=== PATIENT | female | born 1965 | race African-American/Black ===

== ENCOUNTER 2021-04-16 15:08 | Outpatient (REF) | payer MEDICARE, SELFPAY ==
[2021-04-16 15:46] LABS: Anion Gap 15 (12-20); Blood Urea Nitrogen 9 mg/dL (9-16); Calcium 7.6 mg/dL (8.4-10.2); Carbon Dioxide 21 mmol/L (22-29); Chloride 104 mmol/L (96-108); Estimated Glomerular Filt Rate > 60; Glucose Random 67 mg/dL (60-115); Potassium 3.7 mmol/L (3.3-5.1); Sodium 136 mmol/L (135-145)
== END 2021-04-16 15:09 | disposition home or self-care (01) ==
LOC: HO.HVNA 15:08
PROVIDERS: Visit Provider Internal Medicine
DX: E87.6 Hypokalemia (principal)
CPT/HCPCS: 36415; 80048

== ENCOUNTER → 2024-02-29 13:44 | Outpatient (BNVA) | payer MEDICARE, OTHER, MEDICAID, SELFPAY | PROVIDERS: PCP Nurse Practitioner Family; Visit Provider Surgery ==

== ENCOUNTER 2024-04-25 12:20 | Outpatient (AMB) | payer MEDICARE, MEDICAID, SELFPAY ==
--- NOTE | 2024-04-25 12:22 | MHC.OFFVISWM ---
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 surgical weight loss program. Her goal is to lose weight and achieve a healthy lifestyle as well as to improve, if not resolve, obesity related medical conditions. Current weight is 267.8lbs with a BMI of 46.7.? She has tried multiple methods of weight loss including gastric bypass in 1999, weight watchers without permanent results. She lives with her . 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 She wakes at: 10am, and goes to bed at 2am.? Dinner is at 6pm. 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 PM snack: none Dinner: 6pm- hamburger/hot dog, pasta salad, baked beans, corn on the cob After dinner: will snack late at night- leftovers from dinner Other snacks: I'm not a sweet eater Liquids: cranberry juice Alcohol/marijuana/tobacco intake: no EtOH, no tobacco, no drugs Exercise: has two knee replacements and back pain- does stretching, has PT exercises- daily, has an exercise machine at home (similar to an elliptical) GERD score: 15 CONNOR score: 0 ESS score: 5 QOL score: 71 PFSH Surgical History Hx laparoscopic cholecystectomy Hx of discectomy Hx of gastric bypass History of bilateral knee replacement Social History Alcohol intake: never Patient Tobacco Use Status: Never used Tobacco Physical Exam Vital Signs: Last Vital Signs Temp 97.5 F 04/25/24 12:29 Pulse 77 04/25/24 12:29 BP 135/72 04/25/24 12:29 Pulse Ox 95 04/25/24 12:29 Oxygen Delivery Method Room Air 04/25/24 12:29 BMI result Body Mass Index 46.7 Const General: cooperative, comfortable and no acute distress Resp Effort & Inspection: normal respiratory effort Auscultation: clear to auscultation bilaterally Cardio Rate: regular rate Rhythm: regular rhythm GI Other: soft, nontender, nondistended, previous incisions well healed (open gastric bypass, lap yony), no hernias or masses, +BS Extrem General: Yes no calf tenderness and No edema Assessment & Plan Assessment & Plan (1) Gastric bypass status for obesity: Comment: 2000- Dr. Robison, open procedure Code(s): Z98.84 - Bariatric surgery status Category: Surgical (2) GERD (gastroesophageal reflux disease): Code(s): K21.9 - Gastro-esophageal reflux disease without esophagitis Category: Medical (3) Arthritis: Code(s): M19.90 - Unspecified osteoarthritis, unspecified site Category: Medical (4) Tachycardia: Code(s): R00.0 - Tachycardia, unspecified Category: Medical Plan This is a 58 yo female who will start our SWL program to prepare for revision bariatric surgery.? Blood work, CXR, ECG, Abd US have been ordered. In addition, CT scan to define anatomy is ordered and will schedule pt for endoscopy at which time H. pylori testing can be done. She is being scheduled for RD and BH initial consultations. She will start SWL classes and watch at least #1 and #2 before her next appointment. Will obtain previous op note and path report from gastric bypass surgery. Adequate sleep of 7-8 hours per night discussed. ?? Pt will purchase body composition analyzer scale (Nirmala Willard or [employer] recommended) and check weight weekly. The best time to do this is first thing in the morning after going to the bathroom. 1. Nutritional counseling. 11am-1pm: Premier Protein powder- 2 scoops in 8oz vanilla unsweetened almond milk 2pm-4pm: [employer]unch protein bar Dinner at 6pm: 6 forks of protein and 6 forks of salad/vegetables 7pm-9pm: [employer] protein bar 10pm-12am: Premier Protein powder- 1 scoop in 8oz vanilla unsweetened almond milk Meal to include lean meat (beef, fish, pork, turkey, chicken), cooked vegetables or a salad with olive oil and/or fruits (berries, pears, apples, kiwi). Avoid salt, breads, potatoes, rice, pasta, desserts.? Try to drink 64 oz of water daily and avoid soda and juices. ?2. Each shake would be drunk slowly, like coffee in a period of 2 hours. ?3. Cut each bar in 4 pieces and eat each piece in 30 min? to make each bar last 2 hours. ?4. I emphasized the importance of measuring accurately the food portion and measure it carefully when serving the food on the plate ?5. The meal portions include 6 full-size forks of meat and 6 full-size forks of salad or vegetables. You always eat the meat portion but you can replace up to half of the forks of salad/vegetables with rice, potatoes or pasta, or a fruit? if you like. The less you do it the better weight loss will be. ?6. One full-size fork is what can be scooped on the fork without falling aside and not what can be bit with the fork. Use regular forks like those you find in a typical restaurant. ?7.? Please send me weight measurements as soon as possible and then once a week. Always include your diet and exercise plan. Alternatively come weekly at the office for weight checks and send me the measurements. ?8. Start elliptical with an incline of 2.0 and resistance of 4.0. Increase resistance by 1 every 3 min to a max resistance of 10.0, and repeat cycles for 300 calories. Alternatively, start treadmill with a speed of 2.0 and incline of 0, increasing incline by 1 every 3 minutes to the highest comfortable level then decrease in the same fashion.? Repeat process to a goal of 300 calories.? Goal of 2000 calories burned or more weekly.? Tracking calories is essential. 9. Alternatively start walking outside daily, tracking calories with a goal of 300 calories per day, daily. You can download the mirian DramaFever which can track you time, distance and calories while walking outside.? You press start in the mirian when you start and then stop when you are finished.?? 10.? It is important to avoid and for at least 18 months postoperatively and it has been discussed at the information session 11. Goal is to lose at least 1.5-2lbs per week 12. Goal to lose 10% of your weight before surgery, which is about 26 lbs. Ultimate weight goal: 241 lbs before surgery Patient is morbidly obese and is not considered stable at this time. I spent a total of 60 minutes reviewing/updating records, examining the patient and counseling the patient on weight management as detailed above. Orders: Orders Complete Blood Count Auto Diff Today Z.818 - Encounter for other preprocedural examination, Z.84 - Bariatric surgery status Lipid Panel Today Z.8 - Encounter for other preprocedural examination, Z.84 - Bariatric surgery status IRON PROFILE Today Z.8 - Encounter for other preprocedural examination, Z.84 - Bariatric surgery status Comprehensive Met. Panel Today Z.818 - Encounter for other preprocedural examination, Z.84 - Bariatric surgery status Zinc Today Z01.818 - Encounter for other preprocedural examination, Z.84 - Bariatric surgery status Ferritin Today Z01.818 - Encounter for other preprocedural examination, Z.84 - Bariatric surgery status Vitamin D 25-OH Total Today Z.818 - Encounter for other preprocedural examination, Z.84 - Bariatric surgery status XR chest 2V Today Z.818 - Encounter for other preprocedural examination, Z.84 - Bariatric surgery status FL upper GI w air Today Z01.818 - Encounter for other preprocedural examination, Z.84 - Bariatric surgery status Insulin Today Z.818 - Encounter for other preprocedural examination, Z.84 - Bariatric surgery status Hemoglobin A1c Today Z01.818 - Encounter for other preprocedural examination, Z98.84 - Bariatric surgery status H Pylori Breath Test Today Z - Encounter for other preprocedural examination, Z.84 - Bariatric surgery status Vitamin B12 and Folate Today Z - Encounter for other preprocedural examination, Z.84 - Bariatric surgery status C Reactive Protein Today Z - Encounter for other preprocedural examination, Z.84 - Bariatric surgery status Vitamin B1 Today Z - Encounter for other preprocedural examination, Z.84 - Bariatric surgery status Vitamin A Today Z - Encounter for other preprocedural examination, Z.84 - Bariatric surgery status TSH reflex Free T4 Today Z - Encounter for other preprocedural examination, Z - Bariatric surgery status US abdomen comp w elastography Today Z - Encounter for other preprocedural examination, Z.84 - Bariatric surgery status ECG 12 lead EKG Today Z - Encounter for other preprocedural examination, Z - Bariatric surgery status Referrals Behavioral Health Referral Z - Encounter for other preprocedural examination, Z. - Bariatric surgery status Nutrition/Dietitian Referral Z - Encounter for other preprocedural examination, - Bariatric surgery status
[2024-04-25 12:29] VITALS: BP 135/72; PULSE 77; TEMP 36.4; O2SAT 95; BMI 46.7
== END 2024-04-25 13:28 | disposition home or self-care (01) ==
PROVIDERS: PCP Nurse Practitioner Family; Visit Provider Physician Assistant Surgical
DX: E66.01 Morbid (severe) obesity due to excess calories (principal); Z68.42 Body mass index [BMI] 45.0-49.9, adult; Z98.84 Bariatric surgery status; K21.9 Gastro-esophageal reflux disease without esophagitis; M19.90 Unspecified osteoarthritis, unspecified site; R00.0 Tachycardia, unspecified
CPT/HCPCS: 99205

== ENCOUNTER → 2024-04-25 12:20 | Outpatient (BNVA) | payer OTHER, SELFPAY | PROVIDERS: PCP Nurse Practitioner Family; Visit Provider Physician Assistant Surgical | DX: Z01.818 Encounter for other preprocedural examination (principal); E66.01 Morbid (severe) obesity due to excess calories; K21.9 Gastro-esophageal reflux disease without esophagitis; Z71.3 Dietary counseling and surveillance; Z68.42 Body mass index [BMI] 45.0-49.9, adult; Z98.84 Bariatric surgery status | CPT/HCPCS: 99202 ==

== ENCOUNTER 2024-05-28 11:55 | Outpatient (REF) | payer MEDICARE, SELFPAY ==
--- NOTE | ~2024-05-28 | XR_ITS ---
EXAMINATION: XR CHEST CLINICAL INFORMATION: Z98.84 - Bariatric surgery status COMPARISON: None TECHNIQUE: 2 views of the chest FINDINGS: Lines and tubes: None. Hazy perihilar airspace opacities which may reflect edema or multifocal infection, recommend follow-up radiographs to ensure resolution and if findings do not resolve further evaluation with CT chest. Trace right pleural effusion. No pneumothorax. Normal cardiomediastinal silhouette. XR/XR chest 2V IMPRESSION: 1. Hazy perihilar airspace opacities which may reflect edema or multifocal infection, recommend follow-up radiographs to ensure resolution and if findings do not resolve further evaluation with CT chest. 2. Trace right pleural effusion. The report will be called to the ordering clinician by a [facility] Display Builder. Electronically signed by: Ansley Zaman MD 06/21/2024 11:55 AM EDT
--- NOTE | 2024-05-28 12:04 | ECG_ITS ---
Test Reason : BARIATRIC STATUS Blood Pressure : / mmHG Vent. Rate : 075 BPM Atrial Rate : 075 BPM P-R Int : 170 ms QRS Dur : 078 ms QT Int : 384 ms P-R-T Axes : 031 012 016 degrees QTc Int : 428 ms Poor data quality, interpretation may be adversely affected Normal sinus rhythm Normal ECG No previous ECGs available Referred By: Yanira Liriano Electronically Signed By:MICHELLE BORDEN
[2024-05-28 12:17] LABS: MANUAL DIFF FLAG NO
[2024-05-28 12:32] LABS: Basophils Percent Auto 0.2 % (0-2); Eosinophils Absolute Auto 0.4 X10*3/uL (0.0-0.4); Eosinophils Percent Auto 2.2 % (0-4); Hematocrit 41.9 % (37.0-47.0); Imm Gran Abs Auto 0.08 X10*3/uL (0.00-0.03); Imm Gran Pct Auto 0.5 % (0.0-0.4); Lymphocytes Absolute Auto 3.4 X10*3/uL (1.2-4.9); Mean Corpuscular Hemoglobin 22.6 pg (27.0-33.0); Mean Platelet Volume 9.3 fL (9.4-12.3); Monocytes Absolute Auto 1.4 X10*3/uL (0.1-1.2); Monocytes Percent Auto 8.9 % (2-11); Neutrophils Absolute Auto 10.9 x10*3/uL (2.0-8.3); Neutrophils Percent Auto 67.2 % (45-73); Platelet Count 382 X10*3/uL (160-400); Red Blood Count 5.74 X10*6/uL (4.20-5.50); Red Cell Distribution Width 15.7 % (11.0-16.0); White Blood Count 16.3 X10*3/uL (4.8-10.8)
[2024-05-28 12:40] LABS: Estimated Average Glucose 114 mg/dL; Hemoglobin A1c % 5.6 % (<6.0)
[2024-05-28 13:21] LABS: Alanine Aminotransferase 21 U/L (0-31); Albumin Level 3.9 g/dL (3.5-5.0); Alkaline Phosphatase 136 U/L (39-117); Anion Gap 16 (12-20); Aspartate Amino Transferase 21 U/L (5-31); Bilirubin Total 0.4 mg/dL (0.0-1.0); Blood Urea Nitrogen 13 mg/dL (9-16); C Reactive Protein 2.24 mg/dL (< or = 0.50); Calcium 9.5 mg/dL (8.4-10.2); Carbon Dioxide 24 mmol/L (22-29); Chloride 104 mmol/L (96-108); Cholesterol 155 mg/dL (<200); Estimated Glomerular Filt Rate > 60; Glucose Random 86 mg/dL (60-115); HDL Cholesterol 51 mg/dL (>40); Iron 72 mcg/dL (30-160); LDL Cholesterol Calculated 88 mg/dL (<100); Percent Iron Saturation 21 % (15-50); Sodium 139 mmol/L (135-145); Total Iron Binding Capacity 339 mcg/dL (228-428); Total Protein 7.6 g/dL (6.5-8.0); Triglycerides 80 mg/dL (<150); Unsaturated Iron Binding 267 ug/dL
[2024-05-28 13:33] LABS: Ferritin 351 ng/mL (10-250); Insulin 10 uU/mL (2-29); TSH reflex Free T4 0.95 uIU/mL (0.32-4.0); Vitamin D 25-OH Total 11.1 ng/mL (>30)
[2024-05-28 13:37] LABS: Folate 9.3 ng/mL (> or = 4.0); Vitamin B12 540 pg/mL (200-900)
[2024-05-31 01:23] LABS: Zinc 84 mcg/dL (60-130)
[2024-06-01 18:53] LABS: Vitamin A 78 mcg/dL (38-98)
[2024-06-04 06:18] LABS: Vitamin B1 <6 nmol/L (8-30)
== END 2024-05-28 11:56 | disposition home or self-care (01) ==
LOC: HO.LAB 11:55
PROVIDERS: Visit Provider Physician Assistant Surgical
DX: Z01.818 Encounter for other preprocedural examination (principal); Z98.84 Bariatric surgery status
CPT/HCPCS: 36415; 71046; 80053; 80061; 82306; 82607; 82728; 82746; 83036; 83525; 83540; 84425; 84443; 84590; 84630; 85025; 86140; 93005

== ENCOUNTER → 2024-05-30 13:05 | Outpatient (BNVA) | payer MEDICARE, SELFPAY | PROVIDERS: Visit Provider Counselor Mental Health ==

== ENCOUNTER → 2024-05-30 13:05 | Outpatient (AMB) | payer MEDICARE, SELFPAY ==
--- NOTE | 2024-05-30 13:13 | MHC.WMTHER ---
Intake Intake Visit Reasons: (TV) BH Intake Allergies No Known Allergies Allergy (Verified 04/25/24 12:27) PFSH Surgical History Hx laparoscopic cholecystectomy Hx of discectomy Hx of gastric bypass History of bilateral knee replacement Social History Alcohol intake: never Patient Tobacco Use Status: Never used Tobacco Behavioral Health Assessment Weight Management Therapy Therapy Notes Details Pt is a 58 years old female, who presents for initial behavioral health assessment as part of surgical weight-loss program. Presenting Concerns Referral Source [facility]MP Provider. Pt saw Allie Napoles on 04/25 for first time. Reason for referral Completion of behavioral health assessment as part of process for weight-loss surgery. Precipitating Event Weight gain after gastric bypass. Food/Weight/Diet Expectations of change Initial goal to lose 10% of her weight before surgery, which is about 26 lbs. Ultimate weight goal: 241 Lbs before surgery. PT feels good with this goal. History/Relationship with food PT reports she doesn't eat large amounts of food because she can, rather she eats the wrong foods. She has some dislikes for food which causes limited options for healthy meals. PT denies she doesn't praise herself with food, but do take out 3-4 times at week (Armenian food, Popeyes, pizza). She was following a meal plan after first bariatric surgery, and she has gotten away from that. She is now able to eat and drink at the same time. Example of meals before starting the program: Breakfast: @2pm ham and cheese sandwich Lunch: @5pm a sandwich, or a salad. IF she cooks meat/potatoes/veggies. Dinner: @7pm Leftovers, as she doesn't finish her meal. Then will eat again the same at @10. She snacks on cheerios, cheese, bananas at night (10- to 12) Her meal schedule is impacted by sleeping issues. She wakes up around 11am, and is not hungry until 1 or 2pm. History/Relationship with weight When had bypass in 1999 her weight was 427Lbs, a year after she was 377Lbs. Lowest weight post GBP was 181Lbs in 2020 while being sick but her average weight post-op was 220Lbs. Her goal is to be under 200Lbs. Binge Eating Do you frequently eat large amounts of food in short periods of time, not feeling physically hungry? No Do you feel out of control when you eat a large amount of food in a short period of time? No Do you eat large amounts of food rapidly and typically alone? No Night Eating Do you wake up at least once during the night to eat? No If you wake up in the night, do you find that it is necessary to eat something in order to fall back asleep? No Do you have little or no appetite in the morning and feel very hungry in the evening, often overeating between dinner and when you go to bed? No Social History Family history and relationship since 2019 with her second marriage First in 2014 Client has 4 adult children, and 10 grandchildren and 2 great-grandchildren. Parents are both . Only sister in 2020. PT states they're a close family. 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 Developmental history and status None reported. Social support and children. 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 Cultural/Ethnic information PT is from [place]. Living in [place] since 1981. Black-[place]uvian. Legal Involvement and History Current or historical involvement with the legal system? None. Education Highest grade completed 1 year of College. Preferred learning style Learn by doing Currently enrolled in educational program? No Interested in further educational program? No Educational Interests/Skills [employer] license, she works part-time, every other weekend. 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 ) Wants help to find employment? 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 Family activities/gatherings. 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 Financial Situation Describe current financial situation Comfortable Financial assistance? SSDI Service Service? No Mental Health and Addiction Treatment Current/Past substance abuse? No Current/Past addictive behavior concerns? No Psychiatric history Never been in counseling. Takes trazodone for sleep issues, prescribed by her PCP. Denies ever been in crisis or hospitalized for mental health. No Hx of current concerns with SI/Sa, self/other-harm. Medical and Physical Health Summary Additional Medical History not covered in history PT had 2 knee replacement and back problems due to arthritis. Sexual History concerns None reported. Physical exam in the last year? Yes Pain Screening Current pain? Yes Pain in the last few months? Yes Comments Pt reports she has pain daily. The pain is related to arthritis, mainly affecting her back right now and also sciatic nerve. Medications Is the patient compliant with medications? Yes Does the patient have Roy Guardian in place? Not applicable Does the patient use complimentary health approaches? Yes (stretches. ) Trauma/Abuse History History of trauma? No Questionnaires PHQ-9 Over the last 2 weeks, how often have you been bothered by any of the following problems? 1. Little interest or pleasure in doing things: not at all 2. Feeling down, depressed, or hopeless: not at all 3. Trouble falling or staying asleep, or sleeping too much: several days 4. Feeling tired or having little energy: several days 5. Poor appetite or overeating: several days 6. Feeling bad about yourself - or that you are a failure or have let yourself or your family down: not at all 7. Trouble concentrating on things, such as reading the newspaper or watching television: not at all 8. Moving or speaking so slowly that other people could have noticed. Or the opposite - being so fidgety or restless that you have been moving around a lot more than usual: not at all 9. Thoughts that you would be better off or of hurting yourself in some way: not at all Total score: 3 Depression Screening Interpretation: Negative (Scores from 03/13/24. Will administer a new one next visit. ) Depression Screening Done: Yes Source: Developed by Drs. Juan Parikh, Mary Kate Zuniga, Ethan Moeller and colleagues, with an educational artur from [employer]. Binge Eating Scale Group 1 A. I don't feel self-conscious about my wt. or body size when I'm with others. B. I feel concerned about how I look to others, but it normally does not make me fell disappointed with myself C. I do get self-conscious about my appearance and wt. which makes me feel disappointed in myself. D. I feel very self-conscious about my wt. and frequently I feel intense shame and disgust for myself. I try to avoid social contacts because of my self-consciousness. Response Group 1: B Group 2 A. I don't have any difficulty eating slowly in the proper manner. B. Although I seem to gobble down foods, I don't end up feeling stuffed because of eating to much. C. At times, I tend to eat quickly and then, I feel uncomfortably full afterwards. D. I have the habit of bolting down my food, without really chewing it. When this happens I usually feel uncomfortably stuffed because I've eaten to much. Response Group 2: A Group 3 A. I feel capable to control my eating urges when I want to. B. I feel like I have failed to control my eating more than the average person. C. I feel utterly helpless when it comes to feeling in control of my eating urges. D. Because I feel so helpless about controlling my eating I have become very desperate about trying to get control. Response Group 3: B Group 4 A. I don't have the habit of eating when I'm bored. B. I sometimes eat when I'm bored, but often I'm able to get busy and get my mind off food. C. I have a regular habit of eating when I'm bored, but occasionally, I can use some other activity to get my mind off eating. D. I have a strong habit of eating when I'm bored. Nothing seems to help me breath the habit. Response Group 4: B Group 5 A. I'm usually physically hungry when I eat something. B. Occasionally, I eat something on impulse even though I really am not hungry. C. I have the regular habit of eating foods, that I might not really enjoy, to satisfy a hungry feeling even though physically, I don't need the food. D. Although I'm not physically hungry, I get a hungry feeling in my mouth that only seems to be satisfied when I eat a food, like sandwich, that fills my mouth. Sometimes, when I eat the food to satisfy my mouth hunger, I then spit the food out so I won't gain weight. Response Group 5: B Group 6 A. I don't feel any guilt or self-hate after I overeat. B. After I overeat, occasionally I feel guilt or self-hate. C. Almost all the time I experience strong guilt or self-hate after I overeat. Response Group 6: B Group 7 A. I don't lose total control of my eating when dieting even after periods when I overeat. B. Sometimes when I eat a forbidden food on a diet, I feel like I blew it and eat even more. C. Frequently, I have the habit of saying to myself, I've blown it now, why not go all the way, when I overeat on a diet. When that happens I eat more. D. I have a regular habit of starting a strict diets for myself but I break the diets by going on an eating binge. My life seems to be either a feast or famine. Response Group 7: A Group 8 A. I rarely eat so much food that I feel uncomfortably stuffed afterwards. B. Usually about once a month, I each such a quantity of food, I end up feeling very stuffed. C. I have regular periods during the month when I eat large amounts of food, either at mealtime or at snacks. D. I eat so much food that I regularly feel quite uncomfortable after eating and sometimes a bit nauseous. Response Group 8: B Group 9 A. My level of calorie intake does not go up very high or go down very low on a regular basis. B. Sometimes after I overeat, I will try to reduce my caloric intake to almost nothing to compensate for the excess calories I've eaten. C. I have a regular habit of overeating during the night. It seems that my routine is not to be hungry in the morning but overeat in the evening. D. In my adult years, I have had week-long periods where I practically starve myself. This follows periods when I overeat. It seems I live a life of either feast or famine. Response Group 9: A Group 10 A. I usually am able to stop eating when I want to. I know when enough is enough. B. Every so often, I experience a compulsion to eat which I can't seem to control. C. Frequently, I experience strong urges to eat which I seem unable to control, but at other times I can control my eating urges. D. I feel incapable of controlling urges to eat. I have a fear of not being able to stop eating voluntarily. Response Group 10: A Group 11 A. I don't have any problem stopping eating when I feel full. B. I usually can stop eating when I feel full but occasionally overeat leaving me feeling uncomfortably stuffed. C. I have a problem stopping eating once I start and usually I feel uncomfortably stuffed after I eat a meal. D. Because I have a problem not being able to stop eating when I want, I sometimes have to induce vomiting to relieve my stuffed feeling. Response Group 11: B Group 12 A. I seem to eat just as much when I'm with others, Family social gatherings as when I'm by myself. B. Sometimes, when I'm with other persons, I don't eat as much as I want to eat because I'm self-conscious about my eating. C. Frequently, I eat only a small amount of food when others are present, because I'm very embarrassed about my eating. D. I feel so ashamed about overeating that I pick times to overeat when I know no one will see me. I feel like a closet eater. Response Group 12: A Group 13 A. I eat three meals a day with only an occasional between meal snack. B. I eat 3 meals a day, but I also normally snack between meals. C. When I am snacking heavily, I get in the habit of skipping regular meals. D. There are regular periods when I seem to be continually eating, with no planned meals. Response Group 13: C Group 14 A. I don't think much about trying to control unwanted eating urges. B. At least some of the time, I feel my thoughts are pre-occupied with trying to control my eating urges. C. I feel that frequently I spend much time thinking about how much I ate or about trying not to eat anymore. D. It seems to me that most of my waking hours are pre-occupied by thoughts about eating or not eating. I feel like I'm constantly struggling not to eat. Response Group 14: B Group 15 A. I don't think about food a great deal. B. I have strong craving for food but they last only for brief periods of time. C. I have days when I can't seem to think about anything else but food. D. Most of my days seem to be pre-occupied with thoughts about food. I feel like I live to eat. Response Group 15: B Group 16 A. I usually know whether or not I'm physically hungry. I take the right portion of food to satisfy me. B. Occasionally, I feel uncertain about knowing whether or not I'm physically hungry. A these times it's hard to know how much food I should take to satisfy me. C. Even though I might know how many calories I should eat, I don't have any idea what is a normal amount of food for me. Response Group 16: B Binge Eating Score: 12 Score less than 17 Minimal Risk Score between 18-26 Moderate Risk Score between 27-46 High Risk Assessment & Plan Assessment & Plan (1) Adjustment disorder: Code(s): F43.20 - Adjustment disorder, unspecified Qualifiers: Adjustment disorder type: unspecified type Qualified Code(s): F43.20 - Adjustment disorder, unspecified Plan PT not cleared today as assessment was not finished. PHQ-9 will be administered again and BES scores reviewed with client at next visit. PT will be seen again on 06/22/2024 at 1pm via telehealth. Telehealth Telehealth [facility] Location of provider rendering services: other Location of patient: address on file Patient Identification confirmed using: Name, : Yes Telehealth method: video Patient verbally consented to treatment: Yes Patient verbally consented to billing insurance company: Yes Patient informed of any privacy concerns related to visit: No Minutes spent on Phone/Video with Pt.: 60 Coding Level of Care Code New Pt Tele Psy Diag Eval (12812) Patient Type New Diagnoses Adjustment disorder, unspecified type F43.20 Adjustment disorder type: unspecified type Time Spent (min) 60
== END ==
LOC: HO.HBST 13:05
PROVIDERS: Visit Provider Counselor Mental Health
DX: F43.20 Adjustment disorder, unspecified (principal)
CPT/HCPCS: 90791

== ENCOUNTER 2024-06-19 12:01 | Outpatient (AMB) | payer MEDICARE, SELFPAY ==
--- NOTE | 2024-06-19 12:10 | MHC.OFFVISWM ---
VS Expanded 06/19/24 12:18 Height 5 ft 3.5 in Weight 254 lb BMI 44.3 Intake Visit Reasons: TV F/U SWL Allergies No Known Allergies Allergy (Verified 04/25/24 12:27) Medication List - Last Reconciled 06/19/24 by ULISES Hahn bumetanide 0.5 mg PO DAILY cholecalciferol (vitamin D3) 125 mcg PO DAILY metoprolol succinate ER 25 mg PO DAILY oxycodone mg PO pantoprazole 40 mg PO BID potassium chloride ER 20 mEq PO DAILY spironolactone mg PO sucralfate 1 g PO TID thiamine HCl (vitamin B1) 100 mg PO DAILY trazodone mg PO HPI Comments Details: The patient is a pleasant 59 year old female with history of gastric bypass who returns to the clinic for pre-operative surgical weight loss management.? They were last seen in the office on 04/25/2024, recorded weight at that time was 267.8 pounds, with a BMI of 46.7.? Today's weight is 254 pounds and BMI is 44.3.? There has been a weight loss of 13.8 pounds since initiating the surgical weight loss program on 04/25/2024 with a total body weight loss of 5.15 %. Pt reports starting the plan in mid May after going on vacation. Pre op work up completed as follows: SWL classes:? 05/17 appts: 05/30/24, still needs clearance ?? Labs: WBC 16.3, alk phos 136, CRP 2.24, vit B 6, vit D 11.1 H. pylori: to be done at endoscopy 06/26 CXR: 05/28/24, read pending EK05/28/24, NSR ABD U/S: scheduled 07/04 UGI: not needed, having endoscopy Current meal plan includes: 11am-1pm: [employer] Protein powder- 2 scoops in 8oz vanilla unsweetened almond milk 2pm-4pm: [employer] protein bar Dinner at 6pm: 6 forks of protein and 6 forks of salad/vegetables 7pm-9pm: [employer] protein bar 10pm-12am: [employer] Protein powder- 1 scoop in 8oz vanilla unsweetened almond milk Current exercise plan includes: Rosenda Jane 1 mile walk videos- 3-4 days/week PFSH Surgical History Hx laparoscopic cholecystectomy Hx of discectomy Hx of gastric bypass History of bilateral knee replacement Social History Alcohol intake: never Patient Tobacco Use Status: Never used Tobacco Telehealth Telehealth Telehealth Platform: Telephone Location of provider rendering services: other Location of patient: address on file Patient Identification confirmed using: Name, : Yes Telehealth method: voice only Patient verbally consented to treatment: Yes Patient verbally consented to billing insurance company: Yes Patient informed of any privacy concerns related to visit: Yes Minutes spent on Phone/Video with Pt.: 15 Assessment & Plan Assessment & Plan (1) Gastric bypass status for obesity: Comment: 1999- Dr. Robison, open procedure Code(s): Z98.84 - Bariatric surgery status Category: Medical (2) Morbid obesity: Code(s): E66.01 - Morbid (severe) obesity due to excess calories Category: Medical Plan Continue same meal plan. Endoscopy next week, 07/04. Will attempt to obtain op note and path report from bypass in 1999. Pt also needs CT scan, will order. RTC 1 month for in person visit, physical exam. I spent a total of 30 minutes reviewing/updating records, examining the patient and counseling the patient on weight management as detailed above. Orders: Orders CT abdomen pelvis w IV con Today Z98.84 - Bariatric surgery status
[2024-06-19 12:18] VITALS: BMI 44.3
== END 2024-06-19 12:37 | disposition home or self-care (01) ==
LOC: HO.HBS 12:01
PROVIDERS: PCP Internal Medicine; Visit Provider Physician Assistant Surgical
DX: E66.01 Morbid (severe) obesity due to excess calories (principal); Z68.41 Body mass index [BMI] 40.0-44.9, adult; Z98.84 Bariatric surgery status
CPT/HCPCS: 98967

== ENCOUNTER → 2024-06-19 12:01 | Outpatient (BNVA) | payer MEDICARE, SELFPAY | PROVIDERS: PCP Internal Medicine; Visit Provider Physician Assistant Surgical ==

== ENCOUNTER → 2024-06-22 13:17 | Outpatient (AMB) | payer MEDICARE, SELFPAY ==
--- NOTE | 2024-06-22 13:16 | A.OFFWM_ITS ---
Intake Intake Visit Reasons: VIDEO F/U Allergies No Known Allergies Allergy (Verified 04/25/24 12:27) PFSH Surgical History Hx laparoscopic cholecystectomy Hx of discectomy Hx of gastric bypass History of bilateral knee replacement Social History Alcohol intake: never Patient Tobacco Use Status: Never used Tobacco Behavioral Health Assessment Weight Management Therapy Therapy Notes Details PT is a 58 years old female, who presents for a follow up to complete behavioral health assessment as part of surgical weight-loss program. PT had a gastric bypass in and had gained weight, and at this time she is interested in a revision surgery as she's looking for alternatives to loss and maintain weight-loss. PT states she has no history of mental health and/or been in services before; no history of crisis or inpatient services reported and no history or current concern with senf-harm/other-harm reported. 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 On the other hand, there is also no evidence for stress/emotional-eating, and scores from BES suggest low risk for binge eating behavior. PHQ- scores also showed no active symptoms/concerns with depression. Mental status exam is within normal limits, suggesting person's functioning is not impaired. At this time patient is cleared from the behavioral health standpoint. Presenting Concerns Referral Source WMP Provider. Pt saw Allie Napoles on 04/25 for first time. Reason for referral Completion of behavioral health assessment as part of pr ocess for weight-loss surgery. Precipitating Event Weight gain after gastric bypass. Living Situation Current Living Situation Own At risk of losing current housing? No Satisfied with current living situation? Yes Comments PT lives with her . Food/Weight/Diet Expectations of change Initial goal to lose 10% of her weight before surgery, which is about 26 lbs. Ultimate weight goal: 241 Lbs before surgery. PT feels good with this goal. Her main goal is to maintain her weight-loss. Recent weight: 254 - 12Lbs away form initial goal. Current meal plan includes: 11am-1pm: Premier Protein powder- 2 scoo ps in 8oz vanilla unsweetened almond milk 2pm-4pm: Fitcrunch protein bar Dinner at 6pm: 6 forks of protein and 6 forks of salad/vegetables 7pm-9pm: [employer]unch protein bar 10pm-12am: Premier Protein powder- 1 sco op in 8oz vanilla unsweetened almond milk Current exercise plan includes: Rosenda Lara 1 mile walk videos- 3-4 days/week History/Relationship with food PT reports she doesn't eat large amounts of food because she can, rather she eats the wrong foods. She has some dislikes for food which causes limited options for healthy meals. PT denies she doesn't praise herself with food, but do take out 3-4 times at week (Serbian food, Popeyes, pizza). She was following a meal plan after first bariatric surgery, and she has gotten away from that. She is now able to eat and drink at the same time. Example of meals before starting the program: Breakfast: @2pm ham and cheese sandwich Lunch: @5pm a sandwich, or a salad. IF she cooks meat/potatoes/veggies. Dinner: @7pm Leftovers, as she doesn't finish her meal. Then will eat again the same at @10. She snacks on cheerios, cheese, bananas at night (10- to 12) Her meal schedule is impacted by sleeping issues. She wakes up around 11am, and is not hungry until 1 or 2pm. History/Relationship with weight When had bypass in 1999 her weight was 427Lbs, a year after she was 377Lbs. Lowest weight post GBP was 181Lbs in 2020 while being sick but her average weight post-op was 220Lbs. Her goal is to be under 200Lbs. History/Relationship with dieting Bypass in 1999. Cut on things, like less carbs. Binge Eating Do you frequently eat large amounts of food in short periods of time, not feeling physically hungry? No Do you feel out of control when you eat a large amount of food in a short period of time? No Do you eat large amounts of food rapidly and typically alone? No Night Eating Do you wake up at least once during the night to eat? No If you wake up in the night, do you find that it is necessary to eat something in order to fall back asleep? No Do you have little or no appetite in the morning and feel very hungry in the evening, often overeating between dinner and when you go to bed? No Social History Family history and relationship since 2019 with her second marriage First in 2014 Client has 4 adult children, and 10 grandchildren and 2 great-grandchildren. Parents are both . Only sister in 2020. PT states they're a close family. 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 Developmental history and status None reported. Social support and children. 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 Cultural/Ethnic information PT is from [place]. Living in [place] since 1981. Black-Beninese. Legal Involvement and History Current or historical involvement with the legal system? None. Education Highest grade completed 1 year of College. Preferred learning style Learn by doing Currently enrolled in educational program? No Interested in further educational program? 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 Employment Employment Status [employer] ([employer] ) Wants help to find employment? No Meaningful activities Synagogue activities, bible study. Family activities/ gatherings. 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 Financial Situation Describe current financial situation Comfortable Financial assistance? SSDI Service Service? No Mental Health and Addiction Treatment Current/Past substance abuse? No Current/Past addictive behavior concerns? No Psychiatric history Never been in counseling. Takes trazodone for sleep issues, prescribed by her PCP. Denies ever been in crisis or hospitalized for mental health. No Hx of current concerns with SI/Sa, self/other-harm. Medical and Physical Health Summary Additional Medical History not covered in history PT had 2 knee replacement and back problems due to arthritis. Sexual History concerns None reported. Physical exam in the last year? Yes Pain Screening Current pain? Yes Pain in the last few months? Yes Comments Pt reports she has pain daily. The pain is related to arthritis, mainly affecting her back right now and also sciatic nerve. Medications Is the patient compliant with medications? Yes Does the patient have Roy Guardian in place? Not applicable Does the patient use complimentary health approaches? Yes (stretches. ) Trauma/Abuse History History of trauma? No Questionnaires PHQ-9 Over the last 2 weeks, how often have you been bothered by any of the following problems? 1. Little interest or pleasure in doing things: not at all 2. Feeling down, depressed, or hopeless: not at all 3. Trouble falling or staying asleep, or sleeping too much: nearly every day (insomnia.) 4. Feeling tired or having little energy: several days 5. Poor appetite or overeating: not at all 6. Feeling bad about yourself - or that you are a failure or have let yourself or your family down: not at all 7. Trouble concentrating on things, such as reading the newspaper or watching television: not at all 8. Moving or speaking so slowly that other people could have noticed. Or the opposite - being so fidgety or restless that you have been moving around a lot more than usual: not at all 9. Thoughts that you would be better off or of hurting yourself in some way: not at all Total score: 4 Depression Screening Interpretation: Negative Depression Screening Done: Yes 16146 - PHQ-9 Billing: Yes Source: Developed by Drs. Juan Parikh, Mary Kate Zuniga, Ethan Moeller and colleagues, with an educational artur from [employer]. Binge Eating Scale Group 1 A. I don't feel self-conscious about my wt. or body size when I'm with others. B. I feel concerned about how I look to others, but it normally does not make me fell disappointed with myself C. I do get self-conscious about my appearance and wt. which makes me feel disappointed in myself. D. I feel very self-conscious about my wt. and frequently I feel intense shame and disgust for myself. I try to avoid social contacts because of my self- consciousness. Response Group 1: B Group 2 A. I don't have any difficulty eating slowly in the proper manner. B. Although I seem to gobble down foods, I don't end up feeling stuffed because of eating to much. C. At times, I tend to eat quickly and then, I feel uncomfortably full afterwards. D. I have the habit of bolting down my food, without really chewing it. When this happens I usually feel uncomfortably stuffed because I've eaten to much. Response Group 2: A Group 3 A. I feel capable to control my eating urges when I want to. B. I feel like I have failed to control my eating more than the average person. C. I feel utterly helpless when it comes to feeling in control of my eating urges. D. Because I feel so helpless about controlling my eating I have become very desperate about trying to get control. Response Group 3: B Group 4 A. I don't have the habit of eating when I'm bored. B. I sometimes eat when I'm bored, but often I'm able to get busy and get my mind off food. C. I have a regular habit of eating when I'm bored, but occasionally, I can use some other activity to get my mind off eating. D. I have a strong habit of eating when I'm bored. Nothing seems to help me breath the habit. Response Group 4: B Group 5 A. I'm usually physically hungry when I eat something. B. Occasionally, I eat something on impulse even though I really am not hungry. C. I have the regular habit of eating foods, that I might not really enjoy, to satisfy a hungry feeling even though physically, I don't need the food. D. Although I'm not physically hungry, I get a hungry feeling in my mouth that only seems to be satisfied when I eat a food, like sandwich, that fills my mouth. Sometimes, when I eat the food to satisfy my mouth hunger, I then spit the food out so I won't gain weight. Response Group 5: B Group 6 A. I don't feel any guilt or self-hate after I overeat. B. After I overeat, occasionally I feel guilt or self-hate. C. Almost all the time I experience strong guilt or self-hate after I overeat. Response Group 6: B Group 7 A. I don't lose total control of my eating when dieting even after periods when I overeat. B. Sometimes when I eat a forbidden food on a diet, I feel like I blew it and eat even more. C. Frequently, I have the habit of saying to myself, I've blown it now, why not go all the way, when I overeat on a diet. When that happens I eat more. D. I have a regular habit of starting a strict diets for myself but I break the diets by going on an eating binge. My life seems to be either a feast or famine. Response Group 7: A Group 8 A. I rarely eat so much food that I feel uncomfortably stuffed afterwards. B. Usually about once a month, I each such a quantity of food, I end up feeling very stuffed. C. I have regular periods during the month when I eat large amounts of food, either at mealtime or at snacks. D. I eat so much food that I regularly feel quite uncomfortable after eating and sometimes a bit nauseous. Response Group 8: B Group 9 A. My level of calorie intake does not go up very high or go down very low on a regular basis. B. Sometimes after I overeat, I will try to reduce my caloric intake to almost nothing to compensate for the excess calories I've eaten. C. I have a regular habit of overeating during the night. It seems that my routine is not to be hungry in the morning but overeat in the evening. D. In my adult years, I have had week-long periods where I practically starve myself. This follows periods when I overeat. It seems I live a life of either feast or famine. Response Group 9: A Group 10 A. I usually am able to stop eating when I want to. I know when enough is enough. B. Every so often, I experience a compulsion to eat which I can't seem to control. C. Frequently, I experience strong urges to eat which I seem unable to control, but at other times I can control my eating urges. D. I feel incapable of controlling urges to eat. I have a fear of not being able to stop eating voluntarily. Response Group 10: A Group 11 A. I don't have any problem stopping eating when I feel full. B. I usually can stop eating when I feel full but occasionally overeat leaving me feeling uncomfortably stuffed. C. I have a problem stopping eating once I start and usually I feel uncomfortably stuffed after I eat a meal. D. Because I have a problem not being able to stop eating when I want, I sometimes have to induce vomiting to relieve my stuffed feeling. Response Group 11: B Group 12 A. I seem to eat just as much when I'm with others, Family social gatherings as when I'm by myself. B. Sometimes, when I'm with other persons, I don't eat as much as I want to eat because I'm self-conscious about my eating. C. Frequently, I eat only a small amount of food when others are present, because I'm very embarrassed about my eating. D. I feel so ashamed about overeating that I pick times to overeat when I know no one will see me. I feel like a closet eater. Response Group 12: A Group 13 A. I eat three meals a day with only an occasional between meal snack. B. I eat 3 meals a day, but I also normally snack between meals. C. When I am snacking heavily, I get in the habit of skipping regular meals. D. There are regular periods when I seem to be continually eating, with no planned meals. Response Group 13: C Group 14 A. I don't think much about trying to control unwanted eating urges. B. At least some of the time, I feel my thoughts are pre-occupied with trying to control my eating urges. C. I feel that frequently I spend much time thinking about how much I ate or about trying not to eat anymore. D. It seems to me that most of my waking hours are pre-occupied by thoughts about eating or not eating. I feel like I'm constantly struggling not to eat. Response Group 14: B Group 15 A. I don't think about food a great deal. B. I have strong craving for food but they last only for brief periods of time. C. I have days when I can't seem to think about anything else but food. D. Most of my days seem to be pre-occupied with thoughts about food. I feel like I live to eat. Response Group 15: B Group 16 A. I usually know whether or not I'm physically hungry. I take the right portion of food to satisfy me. B. Occasionally, I feel uncertain about knowing whether or not I'm physically hungry. A these times it's hard to know how much food I should take to satisfy me. C. Even though I might know how many calories I should eat, I don't have any idea what is a normal amount of food for me. Response Group 16: B Binge Eating Score: 12 Score less than 17 Minimal Risk Score between 18-26 Moderate Risk Score between 27-46 High Risk Assessment & Plan Assessment & Plan (1) Adjustment disorder: Code(s): F43.20 - Adjustment disorder, unspecified Plan After completing the assessment, comparing scores from Binge eating scale and PHQ9, with mental status evaluation and patient statements, it is considered that, at this time, there is no risk and/or concerns to move forward with bariatric surgery. This patient has been cleared from standpoint and there is no need for follow up pre or post surgery unless she request one. This provider has advised client to utilize available resources such as peer support group, Facebook group and group therapy, also the patient has been informed of support available at anytime while she is part of this program. Next mirian: None Telehealth Telehealth Telehealth Platform: [employer] [facility] Location of provider rendering services: other Location of patient: address on file Patient Identification confirmed using: Name, : Yes Telehealth method: voice only Patient verbally consented to treatment: Yes Patient verbally consented to billing insurance company: Yes Patient informed of any privacy concerns related to visit: No Minutes spent on Phone/Video with Pt.: 45 Coding Level of Care Code Established Pt Tele Psytx 45 mins (86311) Patient Type Established Diagnoses Adjustment disorder F43.20 Time Spent (min) 45 Comment
== END ==
LOC: HO.HBST 13:17
PROVIDERS: PCP Internal Medicine; Visit Provider Counselor Mental Health
DX: F43.20 Adjustment disorder, unspecified (principal)
CPT/HCPCS: 90834

== ENCOUNTER → 2024-06-22 13:17 | Outpatient (BNVA) | payer MEDICARE, SELFPAY | PROVIDERS: PCP Internal Medicine; Visit Provider Counselor Mental Health ==

== ENCOUNTER 2024-06-26 09:25 | Day surgery (SDC) | payer MEDICARE, SELFPAY ==
--- NOTE | 2024-06-25 08:18 | HO.ANESPROP2 ---
Documented by User: Nancy Calderon NP 06/25/24 08:19 HPI - Anesthesia Eval Consult details Narrative: 59yo F for Upper Endoscopy PMFSH Active Problems Active Problems: All Active Problems Morbid obesity (Acute) Pre-op evaluation (Acute) Tachycardia (Acute) Arthritis (Acute) GERD (gastroesophageal reflux disease) (Acute) Gastric bypass status for obesity (Acute) Past Medical History Medical History Cough GERD (gastroesophageal reflux disease) Tachycardia Surgical History Surgical History Hx of abdominoplasty History of esophagogastroduodenoscopy (EGD) Hx laparoscopic cholecystectomy Hx of discectomy Hx of gastric bypass History of bilateral knee replacement Social History Social History Alcohol intake: never Patient Tobacco Use Status: Never used Tobacco Meds Allergies Allergy/AdvReac Type Severity Reaction Status Date / Time No Known Allergies Allergy Verified 06/26/24 09:46 Home Medications ?Medication ?Instructions ?Recorded ?Confirmed ?Last Taken ?Type bumetanide 0.5 mg tablet 0.5 mg PO DAILY 02/29/24 06/19/24 Unknown History metoprolol succinate 25 mg 25 mg PO DAILY 02/29/24 06/19/24 Unknown History tablet,extended release 24 hr oxycodone 15 mg tablet 15 mg PO Q4-6H PRN Pain 02/29/24 06/19/24 Unknown History pantoprazole 40 mg tablet,delayed 40 mg PO BID 02/29/24 06/19/24 Unknown History release potassium chloride 20 mEq 20 meq PO DAILY 02/29/24 06/19/24 Unknown History tablet,extended release spironolactone 25 mg tablet mg PO 02/29/24 06/19/24 Unknown History sucralfate 1 gram tablet 1 g PO TID 02/29/24 06/19/24 Unknown History trazodone 50 mg tablet 100 mg PO BEDTIME 02/29/24 06/19/24 Unknown History albuterol sulfate 90 mcg/actuation 2 puff inhalation Q6H PRN Cough 06/26/24 06/26/24 Unknown History aerosol inhaler Exam Pertinent Lab Results Pertinent Lab Results: Laboratory Tests 05/28/24 12:09 WBC 16.3 H Hgb 13.0 Hct 41.9 Plt Count 382 Sodium 139 Potassium 5.0 Chloride 104 Carbon Dioxide 24 BUN 13 Creatinine 0.85 Assessment and Plan Assessment Anesthesia Assessment: Chart Reviewed Documented by User: Regina Andrews MD 06/26/24 12:25 PMFSH Active Problems Active Problems: All Active Problems Morbid obesity (Acute) Pre-op evaluation (Acute) Tachycardia (Acute) Arthritis (Acute) GERD (gastroesophageal reflux disease) (Acute) Gastric bypass status for obesity (Acute) Denies ZAK Liquid diet yesterday Past Medical History Medical History Cough GERD (gastroesophageal reflux disease) Tachycardia Family History Family history of problems with anesthesia: No Surgical History Surgical History Hx of abdominoplasty History of esophagogastroduodenoscopy (EGD) Hx laparoscopic cholecystectomy Hx of discectomy Hx of gastric bypass History of bilateral knee replacement History of Problems with Anesthesia: No Social History Social History Alcohol intake: never Patient Tobacco Use Status: Never used Tobacco Meds Allergies Allergy/AdvReac Type Severity Reaction Status Date / Time No Known Allergies Allergy Verified 06/26/24 09:46 Home Medications ?Medication ?Instructions ?Recorded ?Confirmed ?Last Taken ?Type bumetanide 0.5 mg tablet 0.5 mg PO DAILY 02/29/24 06/19/24 Unknown History metoprolol succinate 25 mg 25 mg PO DAILY 02/29/24 06/19/24 Unknown History tablet,extended release 24 hr oxycodone 15 mg tablet 15 mg PO Q4-6H PRN Pain 02/29/24 06/19/24 Unknown History pantoprazole 40 mg tablet,delayed 40 mg PO BID 02/29/24 06/19/24 Unknown History release potassium chloride 20 mEq 20 meq PO DAILY 02/29/24 06/19/24 Unknown History tablet,extended release spironolactone 25 mg tablet mg PO 02/29/24 06/19/24 Unknown History sucralfate 1 gram tablet 1 g PO TID 02/29/24 06/19/24 Unknown History trazodone 50 mg tablet 100 mg PO BEDTIME 02/29/24 06/19/24 Unknown History albuterol sulfate 90 mcg/actuation 2 puff inhalation Q6H PRN Cough 06/26/24 06/26/24 Unknown History aerosol inhaler Exam Height,Weight and Vital Signs: Height 5 ft 4 in Weight 114.396 kg Vital Signs Temp Pulse Resp BP Pulse Ox O2 Del Method 98.0 F 73 15 118/81 99 Room Air 06/26/24 10:05 06/26/24 10:05 06/26/24 10:05 06/26/24 10:05 06/26/24 10:05 06/26/24 10:05 Airway Mallampati Class: II (Significant overbite ) TM Dist: >3cm Neck ROM: Full Loose/Missing/Broken Teeth: Yes (Broken tooth bottom back right and left. Denies loose teeth or missing teeth) Heart: RRR Lungs: CTAB Assessment and Plan Assessment Anesthesia Assessment: Anesthesia Plan Discussed and Chart Reviewed Final Anesthetic Review Family History of Problems with Anesthesia: No History of Problems with Anesthesia: No NPO: Yes ASA Class: III Final Preanesthetic Review: No Changes in Pt Med Stat, Meds/Allgs Chart Reviewed, Consent Obtained/Reviewed and Anes Risks/Benef Reviewed Patient Risk: Intermediate Procedure Risk: Low Assessment/Block/Sedation in SS: Assess/Block/Sedation-SS Anesthetic Plan Anesthetic Plan: GA and TIVA Disposition: Standard PACU
[2024-06-26 09:49] VITALS: BMI 43.3
[2024-06-26 10:05] VITALS: BP 118/81; PULSE 73; RESP 15; TEMP 36.7; O2SAT 99
[2024-06-26] MEDS: Lactated Ringers 1,000 ML 80 ML IVCONT (10:07)
--- NOTE | 2024-06-26 10:49 | MHC.SHP ---
Pre-Procedural Eval Section A - 24 Hr Update-Section A only Date of Service: 06/26/24 The patient is an INPATIENT: No The patient has been examined within 24 hours of the surgical procedure. The History & Physical has been completed within 30 days and I have reviewed it.: Yes Section B - Complete if H&P > 30 days Chief Complaint: Gastro-esophageal reflux disease without esophagit Relevant Family History (Specify if Yes): No Relevant Social History: None Present Medications: None Medical History: No relevant PMH History of Previous Operations: Relevant previous surgery/procedure and date(s) (Open gastric bypass) Allergies: Allergies Allergy/AdvReac Type Severity Reaction Status Date / Time No Known Allergies Allergy Verified 06/26/24 09:46 Review of Systems Sugical H&P ROS: Negative: Constitution, Cardiovascular, Respiratory, Neurological, Psychiatric, Hem-Onc, Allergic/Immunologic, Gastrointestinal, Genitourinary, Musculoskeletal, Integumentary, Endocrine and Eyes/Ears/Nose/Throat Exam Surgical H&P Exam: Normal: HEENT, Normal: Heart, Normal: Lungs, Normal: Extremities, Normal: Abdomen (LUQ incision), Normal: Skin and Normal: Neurological Plan Diagnosis/Plan: Unchanged (EGD to assess etiology of GERD and the bypass's anatomy. Risks of bleeding and perforation were discussed with the patient and she is in agreement with the plan.) I have reviewed the history and physical and performed a pertinent physical examination on my patient. No changes have occurred unless specified. Time Spent With Patient Time: Total time managing care of this patient today ____ minutes.
--- NOTE | 2024-06-26 10:50 | PM.OP ---
Brief Operative Note Date of Service: 06/26/24 Pre-op diagnosis: GERD, s/p gastric bypass Post-op diagnosis: same Procedure: PROCEDURE DATE: 06/26/2024 PREOPERATIVE DIAGNOSIS: GERD, s/p gastric bypass POSTOPERATIVE DIAGNOSIS: ?Same as above. 1) Redundant gastric pouch, 2) Candy cane gastro-jejunostomy, 3) moderate size fixed hiatal hernia with food contents PROCEDURE: Ornwfgke-[id number]-mvefwshzjvr with biopsies Surgeon: ?Shemar Crain M.D.. Ph.D. Dairy Equipment Repairer: ?None ? Anesthesia: IV sedation Estimated blood loss: ?Minimal FINDINGS AND PROCEDURE: ? OPERATIVE INDICATIONS: ?The patient is a 59 year old female known to me who underwent an open gastric bypass by Dr. Peraza. The patient had inadequate weight loss so far and has GERD.? Based on this information I recommended an upper endoscopy to evaluate the patient's symptoms.? Risks and complications of the surgery were discussed with the patient in advance particularly the possibility of perforation or bleeding that may require surgical intervention. The patient understood the risks and was in agreement with the plan. ? PROCEDURE: After informed consent was obtained by the patient, the patient was ?transferred to the Operating Room and was placed in the supine position.? After successful induction of IV sedation, a mouth block was placed and the patient was placed in the left lateral decubitus position. There was however a significant amount of liquid food in the esophagus. I suctioned as much as possible and I withdraw my scope so the patient can be intubated. After successful intubation, an upper endoscopy was performed next, the oropharynx and esophagus appeared within the normal limits. Examination was limited because of residual food contents. There was a moderate size 4cm hiatal hernia (incisors at 37cm, crura at 41cm) containing the upper half of the gastric pouch. The segment of the gastric pouch above the crura, had significant lateral redundancy and this is where the food was pooled. The z-line was smooth. Two biopsies were obtained from the distal esophagus 2-3 cm proximal to the GE junction and two biopsies from the GE junction. The path towards the distal gastric pouch was narrowed at the level of the crura. However the scope can pass easily through. There was another 4cm of subdiaphragmatic pouch (crura at 41cm and GJ anastomosis at 45cm). The distal gastric pouch was normal. There was no gastritis and the gastrojejunostomy was patent. A biopsy was obtained from the proximal and distal gastric pouch. No significant bleeding was noted from any of the biopsy sites. There was no anastomotic ulcer.? At that point the scope was advanced into the proximal small intestine (proximal Jordan limb) which appeared to be normal as well. There was a 3-4cm blind end of the Jordan limb. The Jordan limb and the pouch were decompressed and the scope was withdrawn from the patient's mouth. The patient was awaken and was transferred in stable condition to the Recovery Room for further care. I was present and performed all steps of the procedure. There were no residents to assist with this case. Shemar Crain M.D., Ph.D. Surgeon: Jose Luis Crain MD Anesthesia: MAC Was an Dairy Equipment Repairer used for this Procedure?: No Estimated blood loss (mL): 0 IV fluids (mL): 400 Urine output (mL): 0 (No Diaz to record output) Pathology: other (1) proximal gastric pouch x1 2) distal gastric pouch x1, 3) GE junction x2, 4) distal esophagus x2) Condition: stable Disposition: PACU
[2024-06-26 11:56] VITALS: BP 146/88; PULSE 92; RESP 18; TEMP 36.2; O2SAT 97
[2024-06-26 12:00] VITALS: BP 119/83; PULSE 90; RESP 16; O2SAT 97
[2024-06-26 12:05] VITALS: BP 127/83; PULSE 83; RESP 16; O2SAT 95
[2024-06-26 12:10] VITALS: BP 131/83; PULSE 83; RESP 16; O2SAT 95
[2024-06-26] MEDS: Acetaminophen 1,000 MG/100 ML PIGGYBACK 400 MG IV (12:10)
[2024-06-26 12:25] VITALS: BP 127/82; PULSE 79; RESP 16; TEMP 36.1; O2SAT 97
== END 2024-06-26 12:57 | disposition home or self-care (01) ==
PROVIDERS: PCP Internal Medicine; Visit Provider Surgery
PROC: 0DJ08ZZ Inspection of Upper Intestinal Tract, Via Natural or Artificial Opening Endoscopic (ICD-10-PCS; CPT 43235; principal; 2024-06-26 11:00)
DX: K21.9 Gastro-esophageal reflux disease without esophagitis (principal); K95.89 Other complications of other bariatric procedure; Z98.84 Bariatric surgery status; K44.9 Diaphragmatic hernia without obstruction or gangrene; E66.01 Morbid (severe) obesity due to excess calories; Z68.41 Body mass index [BMI] 40.0-44.9, adult; R00.0 Tachycardia, unspecified; R05.9 Cough, unspecified; Z79.899 Other long term (current) drug therapy; Z98.890 Other specified postprocedural states; Z90.49 Acquired absence of other specified parts of digestive tract
CPT/HCPCS: 43239; 88305; 88313; 88342; J0131; J0330; J1596; J2704; J3010

== ENCOUNTER → 2024-06-26 09:25 | Outpatient (BNV) | payer MEDICARE, SELFPAY | PROVIDERS: PCP Internal Medicine; Visit Provider Surgery | DX: K21.9 Gastro-esophageal reflux disease without esophagitis (principal); K95.89 Other complications of other bariatric procedure | CPT/HCPCS: 43239 ==

== ENCOUNTER 2024-07-04 07:42 | Outpatient (REF) | payer MEDICARE, SELFPAY ==
--- NOTE | ~2024-07-04 | US_ITS ---
EXAMINATION: US COMPLETE ABDOMEN WITH LIVER ELASTOGRAPHY CLINICAL INFORMATION: Preoperative examination for gastric bypass procedure. COMPARISON: None available. TECHNIQUE: Real-time imaging of the abdominal viscera. Noninvasive ultrasound liver fibrosis assessment is performed using Jasmina ElastPQ point quantification shear wave elastography (pSWE) with a C5-2 MHz transducer. Multiple elastography samples are obtained. FINDINGS: PANCREAS: Normal. The visualized pancreatic head and body are normal in appearance. The remainder of the pancreas is obscured from visualization by the overlying bowel gas. ABDOMINAL AORTA: The proximal, middle, and distal aortic segments are normal in caliber. INFERIOR VENA CAVA: Visualized portions are normal. LIVER: Imaging limited by body habitus. The liver demonstrates normal size, contour and generally increased echogenicity. No focal lesion or intrahepatic biliary duct dilatation. The right lobe measures 17.4 cm in length. The left lobe measures 8.4 cm in length. Portal flow is towards the liver (hepatopetal). Shear wave liver elastography median stiffness is 1.1 m/s (reference: normal median stiffness is 1.3 m/s or less). IQR/median stiffness to assess sampling precision is 0.32 (reference: good quality data set is IQR/median stiffness of 0.15 or less). GALLBLADDER: Surgically absent. COMMON BILE DUCT: Normal in caliber measuring 0.3 cm in diameter. RIGHT KIDNEY: Normal. No hydronephrosis. No renal calculi or focal parenchymal lesions. The kidney measures 10.5 cm in maximum dimension. LEFT KIDNEY: Normal. No hydronephrosis. No renal calculi or focal parenchymal lesions. The kidney measures 10.2 cm in maximum dimension. SPLEEN: Imaging limited by body habitus. The spleen measures 9.3 cm in maximum dimension. FREE FLUID: None. US/US abdomen comp w elastography IMPRESSION: 1. There is generalized increase in hepatic echotexture, consistent with fatty infiltration or hepatocellular disease. Please correlate clinically. No focal hepatic mass or intrahepatic biliary dilatation is seen. 2. There is mild hepatomegaly. 3. Liver elastography: Although measurements suggest a high probability of normal liver stiffness, there is statistical variability of the sampling which decreases accuracy. REFERENCE: Society of Radiologists in Ultrasound Liver Stiffness Thresholds (2019): LIVER STIFFNESS THRESHOLDS: *Liver Stiffness equal or less than 1.3 m/s: High probability of being normal. *Liver Stiffness less than 1.7 m/s: In the absence of other known clinical signs, rules out compensated advanced chronic liver disease. *Liver Stiffness 1.7-2.1 m/s: Suggestive of compensated advanced chronic liver disease but need further test for confirmation. *Liver Stiffness over 2.1 m/s: Rules in compensated advanced chronic liver disease. *Liver Stiffness over 2.4 m/s: Suggestive of clinically significant portal hypertension. QUALITY OF DATA SET: *IQR/Median value equal or less than 0.15 implies a quality data set. *IQR/Median value over 0.15 implies a poor quality data set. SIGNIFICANT CHANGE FROM PRIOR EXAM: Significant change if liver stiffness measurement is 10% or greater from prior exam. OTHER CONSIDERATIONS: The stage of liver fibrosis may be overestimated in the setting of acute hepatitis, liver inflammation, elevated liver function tests, hepatic vascular congestion, obstructive cholestasis, non-fasting state, and infiltrative diseases such as amyloidosis and lymphoma. In some patients with NAFLD, the liver stiffness thresholds for compensated advanced chronic liver disease may be lower. In causes other than viral hepatitis and NAFLD, liver stiffness thresholds are not well established. Electronically signed by: Pedro Solis MD 07/05/2024 02:52 PM EDT
--- NOTE | ~2024-07-04 | FL_ITS ---
EXAMINATION: XR FLUOROSCOPY UPPER GI WITH AIR CLINICAL INFORMATION: Preoperative evaluation. History of gastric bypass. COMPARISON: None TECHNIQUE: Fluoroscopic air contrast upper GI examination was performed utilizing standard techniques with thin and thick barium and effervescent granules. Numerous spot images were obtained. FINDINGS: Dual and single contrast images of the esophagus demonstrate a very patulous esophagus. There is a granular appearance of the esophageal mucosa, suggestive of esophagitis. No evidence of stricture, mass, or ulcerations identified. Esophageal peristalsis is moderately disorganized. A small type I hiatal hernia is present. No significant gastroesophageal reflux was seen during the course of the examination and on reflux views. Dual contrast and single contrast images of the stomach post surgical changes consistent with prior history of Jordan-en-Y gastric bypass. The gastric pouch is very dilated. The mucosal pattern within the pouch is unremarkable. The gastrojejunostomy is widely patent evidence of stricture. There is a small blind segment of jejunum distal to the gastrojejunostomy. Contrast freely passed into the alimentary limb without difficulty.. FLUOROSCOPY TIME: 4 minutes 57 seconds Number of Spot Images: 9 Number of Cine: 14 DOSE AREA PRODUCT: 1928 uGy-m2 (microgray-meter squared) FL/FL upper GI w air IMPRESSION: 1. Very patulous esophagus with moderately disorganized peristalsis consistent with esophageal dysmotility. 2. Granular appearance of the esophageal mucosa, suggestive of esophagitis. 3. Small type I hiatal hernia. 3. Post surgical changes consistent with prior history of Jordan-en-Y gastric bypass. The gastric pouch is very dilated/redundant. The gastrojejunostomy is Y patent, without evidence of stricture. 4. Small blind segment of jejunum distal to the gastrojejunostomy, which may represent candy cane limb. This procedure was performed by Sonido Resendiz PA-C, and supervised by Dr. Coy Electronically signed by: Bony Coy MD 08/24/2024 04:03 PM [facility]
--- NOTE | ~2024-07-04 | XR_ITS ---
EXAMINATION: XR CHEST CLINICAL INFORMATION: Z01.818 - Encounter for other preprocedural examination COMPARISON: 05/28/2024 TECHNIQUE: 2 views of the chest were obtained. FINDINGS: The cardiac, hilar, and mediastinal contours are normal. Lungs again demonstrate patchy groundglass type opacities with interstitial changes associated in both perihilar and lower lobe regions. There has been no significant interval change in these findings and for differences in technique. There is no pneumothorax or pleural effusion. There is no focal osseous or soft tissue abnormality. XR/XR chest 2V IMPRESSION: 1. Chronic appearing groundglass type opacities bilateral perihilar regions and lower lung distributions, with superimposed interstitial changes. Findings appear unchanged. Cannot exclude interstitial lung disease. Recommend CT of the chest for further characterization. Electronically signed by: Bony Coy MD 09/10/2024 11:08 AM [facility]
== END 2024-07-04 07:43 | disposition home or self-care (01) ==
LOC: HO.US 07:42
PROVIDERS: PCP Nurse Practitioner Family; Visit Provider Physician Assistant Surgical
DX: Z01.818 Encounter for other preprocedural examination (principal); Z98.84 Bariatric surgery status
CPT/HCPCS: 71046; 74246; 76700; 76981

== ENCOUNTER → 2024-07-04 08:31 | Outpatient (BNV) | payer MEDICARE, SELFPAY | PROVIDERS: PCP Nurse Practitioner Family; Visit Provider Physician Assistant Surgical | DX: Z01.818 Encounter for other preprocedural examination (principal); Z98.84 Bariatric surgery status | CPT/HCPCS: 71046; 74246 ==

== ENCOUNTER 2025-01-23 13:36 | Outpatient (AMB) | payer MEDICARE, MEDICAID, SELFPAY ==
--- NOTE | 2025-01-23 13:37 | MHC.OFFVISWM ---
VS Expanded 01/23/25 13:44 BP 116/69 Blood Pressure Location Rt brachial Blood Pressure Position Sitting Pulse 75 Pulse Oximetry 100 Height 5 ft 4 in Weight 249 lb 3.2 oz BMI 42.8 Body Fat % 50.5 Body Fat Mass 125.8 Fat Free Mass 123.2 Visceral Fat Rating 16.0 Body Water % 35.2 Body Water Mass 87.8 Muscle Mass/Score 117.0 Basal Metabolic Rate/Score 1,767 Intake Visit Reasons: OV F/U SWL *See Comment* Allergies No Known Allergies Allergy (Verified 01/23/25 13:42) Medication List - Last Reconciled 01/23/25 by ULISES Hahn albuterol sulfate 90 mcg/actuation 2 puffs inhalation Q6H PRN alprazolam 1 mg PO DAILY bumetanide 0.5 mg PO DAILY cholecalciferol (vitamin D3) 125 mcg PO DAILY metoprolol succinate ER 25 mg PO DAILY oxycodone 15 mg PO Q4-6H PRN pantoprazole 40 mg PO BID potassium chloride ER 20 mEq PO DAILY prochlorperazine maleate (Compazine) 5 mg PO Q8H PRN sertraline mg PO spironolactone mg PO sucralfate 1 g PO TID thiamine HCl (vitamin B1) 100 mg PO DAILY trazodone 100 mg PO BEDTIME HPI Comments Details: The patient is a pleasant 59 year old female with history of gastric bypass who returns to the clinic for pre-operative surgical weight loss management. Initial weight 267.8lbs. Pt was last seen in the office on 06/19/2024, recorded weight at that time was 254 pounds. Today's weight is 249.2 pounds and BMI is 42.8. There has been a weight loss of 18.6 pounds since initiating the surgical weight loss program on 04/25/2024 with a total body weight loss of 6.9 %. Pt was lost to followup for several months. Did not have CT abdomen/pelvis done. Pre op work up completed as follows: SWL classes: 05/17 BH appts: 06/22/24, cleared Labs: WBC 16.3, alk phos 136, CRP 2.24, vit B 6, vit D 11.1 H. pylori: negative at endoscopy 06/26 CXR: 05/28/24; chronic appearing groundglass type opacities bilateral perihilar regions and lower lung distributions, with superimposed interstitial changes. Findings appear unchanged. EK05/28/24, NSR ABD U/S: 07/04, fatty liver/hepatomegaly CT abd: cancelled/no showed Current meal plan includes: 11am-1pm: Premier Protein powder- 2 scoops in 8oz vanilla unsweetened almond milk 2pm-4pm: [employer]unch protein bar Dinner at 6pm: 6 forks of protein and 6 forks of salad/vegetables 7pm-9pm: [employer] protein bar 10pm-12am: Premier Protein powder- 1 scoop in 8oz vanilla unsweetened almond milk Current exercise plan includes: Rosenda Lara 1 mile walk videos- 3-4 days/week PFSH Medical History Cough GERD (gastroesophageal reflux disease) Tachycardia Surgical History Hx of abdominoplasty History of esophagogastroduodenoscopy (EGD) Hx laparoscopic cholecystectomy Hx of discectomy Hx of gastric bypass History of bilateral knee replacement Social History Alcohol intake: never Patient Tobacco Use Status: Never used Tobacco Physical Exam Vital Signs: Last Vital Signs Pulse 75 01/23/25 13:44 BP 116/69 01/23/25 13:44 Pulse Ox 100 01/23/25 13:44 BMI result Body Mass Index 42.8 Assessment & Plan Assessment & Plan (1) Morbid obesity: Code(s): E66.01 - Morbid (severe) obesity due to excess calories Category: Medical (2) Gastric bypass status for obesity: Comment: 1999- Dr. Robison, open procedure Code(s): Z98.84 - Bariatric surgery status Category: Surgical Plan Pt would like to defer surgical workup at this time. Pt is interested in starting GLP1. Reviewed contraindications, discussed dosing. Discussed need for adequate protein intake while on GLP1s as well as frequent communication with our office. Pt will check in with me weekly and is aware that subsequent Rx will be dependent on frequent communication. RTC 6 weeks. Medications: New Zepbound (tirzepatide (weight loss)) for 4 weeks 2.5 mg (0.5 mL) subcut QWEEK 2 mL 0RF NS
[2025-01-23 13:44] VITALS: BP 116/69; PULSE 75; O2SAT 100; BMI 42.8
--- OUTSIDE RECORDS SUMMARY | 2025-01-23 16:11 | XMS_ITS ---
Author Organization [facility] Care Team Providers Care Director Of Quality Improvement Name Role Phone Belinda Daniels Unavailable Unavailable Ellen Yi Unavailable Unavailable Simi Martinez Unavailable Unavailable Allergies and adverse reactions No Known Allergies Care Team Name Role Address Phone Organization Dates Ellen Yi PCP [address], [address], [facility] (Office): [facility] 06/24/2021 - 07/14/2021 Belinda Daniels Attending Physician [address] [place] [address], [phone], [facility] (Office): [facility] 06/24/2021 - 07/14/2021 Simi Martinez Attending Physician [address] [place] [address], [phone], [facility] (Office): [facility] 06/24/2021 - 07/14/2021 Immunizations Immunization Status Vaccine Details Vaccine Code CodeSystem Ruben e Notes TB 2 Step Mantoux Skin Test completed tuberculin skin test; unspecified formulation lotNumber: [id number] expiry: 01/01/2023 Mfg: [employer] Given 0.1 ml Right Forearm intradermally Step 1 of Multi-step with next step required 98 CVX created date: 06/25/2021 consent date: 06/25/2021 administere d date: 06/25/2021 SARS-COV-2 (COVID-19) completed SARS-COV-2 (COVID-19) vaccine, mRNA, spike protein, LNP, preservative free, 30 mcg/0.3mL dose Mfg: DNA Response Step 2 of Multi-step with next step required 208 CVX created date: 06/24/2021 administere d date: 11/04/2020 SARS-COV-2 (COVID-19) completed SARS-COV-2 (COVID-19) vaccine, mRNA, spike protein, LNP, preservative free, 30 mcg/0.3mL dose Mfg: DNA Response Step 1 of Multi-step with next step required 208 CVX created date: 06/24/2021 administere d date: 10/14/2020 Mental Status Section Date Assessment Total Score Description 07/14/2021 CAM 0 No delirium ind icated 07/07/2021 BIMS 15 cognitively int act PHQ-9 00 Problems Problem # Description Date of onset Resolved Date Code CodeSystem Concern Status 1 ACUTE KIDNEY FAILURE, UNSPECIFIED 06/24/[address] active 2 DIFFICULTY IN WALKING, NOT ELSEWHERE CLASSIFIED 06/24/[address] active 3 DISORDER OF UREA CYCLE METABOLISM, UNSPECIFIED 06/24/[address] active 4 DYSPHAGIA, OROPHARYNGEAL PHASE 06/24/[address] active 5 ESSENTIAL (PRIMARY) HYPERTENSION 06/24/[address] active 6 GASTRO-ESOPHAGEAL REFLUX DISEASE WITHOUT ESOPHAGITIS 06/24/[address] active 7 GENERALIZED ANXIETY DISORDER 06/24/[address] active 8 HEART FAILURE, UNSPECIFIED 06/24/[address] active 9 INSOMNIA, UNSPECIFIED 06/24/[address] active 10 MAJOR DEPRESSIVE DISORDER, RECURRENT, UNSPECIFIED 06/24/[address] active 11 METABOLIC ENCEPHALOPATHY 06/24/[address] active 12 MUSCLE WEAKNESS (GENERALIZED) 06/24/[address] active 13 OTHER SPECIFIED INTERSTITIAL PULMONARY DISEASES 06/24/[address] active 14 PNEUMONIA, UNSPECIFIED ORGANISM 06/24/[address] active 15 PYOTHORAX WITHOUT FISTULA 06/24/[address] active 16 SEPSIS, UNSPECIFIED ORGANISM 06/24/[address] active 17 UNSTEADINESS ON FEET 06/24/[address] active Reason for Referral No Reasons for Referral Entered Social History Social History Observation Description Start Date End Date Code Code System Current Smoking Status Tobacco smoking consumption unknown 272476155 SNOMED CT Sex Assigned At Female 1965 30700-3 [facility] Vital Signs Code Code System Vitals Name Values and Units Timing Information 43178-1 [facility] Pain Level Value=0.0 07/14/2021 85836-2 [facility] Weight Bbstq=468.4 Units=Lbs 02/2021 8462-4 [facility] Blood Pressure-Diastolic Value=64 Un its=mmHg 07/14/2021 8480-6 [facility] Blood Pressure-Systolic Gyuzw=198 Un its=mmHg 07/14/2021 8867-4 [facility] Heart rate Value=78.0 Units=/min 02/2021 74830-9 [facility] O2 % BldC Oximetry Value=96.0 Units= % 07/14/2021 8310-5 [facility] Body Temperature Value=97.8 Units=?? F 07/14/2021 9279-1 [facility] Respiratory Rate Value=18.0 Units=/m in 07/14/2021 8302-2 [facility] Height Value=64.0 Units=Inches 06/25/2021
--- OUTSIDE RECORDS SUMMARY | 2025-01-23 16:11 | XMS_ITS | Clinical Summary ---
Author Organization [facility] Address [address] [place] [address] Phone Care Team Providers Care Drilling Plant Operator Name Role Phone Yady Rose NP Primary Care Provider [phone] Allergies Active Allergy Reactions Criticality Noted Date Comments Morphine 06/09/2010 Other 06/09/2010 Oxycodone-Acetaminophen Nausea And Vomiting Medications Multiple Vitamin (multivitamin) capsule Take 1 capsule by mouth 1 (one) time each day Active metoprolol succinate XL (TOPROL XL) 25 MG 24 hr tablet Take 25 mg by mouth 1 (one) time each day 06/25/2021 Active pantoprazole (PROTONIX) 40 MG EC tablet Take 40 mg by mouth 2 (two) times a day 06/26/2021 Active sertraline (ZOLOFT) 100 MG tablet Take 100 mg by mouth 1 (one) time each day 06/25/2021 Active traZODone (DESYREL) 50 MG tablet Take 50 mg by mouth 2 (two) times a day 06/25/2021 Active oxyCODONE (ROXICODONE) 15 MG immediate release tablet Take 1 tablet by mouth every 4 (four) hours if needed 11/30/2021 Active LORazepam (ATIVAN) 1 MG tablet Take 1 mg by mouth 2 (two) times a day if needed 11/13/2021 Active potassium chloride (K-TAB) 20 MEQ CR tablet Take 1 tablet by mouth every other day 12/07/2021 Active sucralfate (CARAFATE) 1 g tablet Take 1 g by mouth in the morning and 1 g in the evening. Active polyethylene glycol (GLYCOLAX) 17 g packet Take 17 g by mouth 2 (two) times a day if needed Active spironolactone (ALDACTONE) 25 MG tablet Take 1 tablet (25 mg total) by mouth in the morning and 1 tablet (25 mg total) in the evening. 180 tablet 3 04/02/2022 Active magnesium oxide (MAG-OX) 400 MG tablet Take 1 tablet (400 mg total) by mouth in the morning and 1 tablet (400 mg total) in the evening. 180 tablet 3 04/02/2022 Active bumetanide (BUMEX) 0.5 MG tabletIndicatio ns:Hypertension TAKE 1 TABLET BY MOUTH 1 TIME EACH DAY. 90 tablet 3 04/04/2023 Active Active Problems Problem Noted Date Diagnosed Date Acute kidney failure 06/24/2021 Hypokalemia 04/29/2021 Hypertension Iron deficiency anemia Resolved Problems Problem Noted Date Diagnosed Date Resolved Date Edema 08/14/2021 10/15/2021 Difficulty in walking 06/24/20212021 Disorder of urea cycle metabolism 06/24/2021 10/15/2021 Dysphagia, oropharyngeal phase 06/24/2021 10/15/2021 Gastro-esophageal reflux dis ease without esophagitis 06/24/2021 10/15/2021 Generalized anxiety disorder 06/24/2021 10/15/2021 Generalized muscle weakness 06/24/2021 10/15/2021 Heart failure 06/24/2021 10/15/2021 Insomnia 06/24/2021 10/15/2021 Metabolic encephalopathy 06/24/202103/2022 Other specified interstitial pulmonary disease 06/24/2021 10/15/2021 Pneumonia 06/24/2021 10/15/2021 Pyothorax without fistula 06/24/2021 Recurrent major depressive disorder 06/24/2021 10/15/2021 Sepsis 06/24/2021 10/15/2021 Unsteadiness on feet 06/24/2021 022 Immunizations Immunization Administration Dates Next Due Pfizer SARS-COV-2 11/04/2020,10/14/2020 Family History Medical History Relation Comments Cancer Father Diabetes Mother Diabetes Sister Relation Status Comments Father Mother Sister Alive Social History Tobacco Use Types Packs/Day Years Used Date Smoking Tobacco: Never Smokeless Tobacco: Never Tobacco Cessation:Counseling Given: No Alcohol Use Standard Drinks/Week Comments Never 0 (1 standard drink = 0.6 oz pur e alcohol) Comments Unknown Sex and Gender Information Value Date Recorded Sex Assigned at Not on file Legal Sex Female 1:42 PM EDT Gender Identity Not on file Sexual Orientation Not on file 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 Not on file Not on file Last Filed Vital Signs Vital Sign Reading Time Taken Comments Blood Pressure 114/79 03/11/2022 1:17 PM EDT Pulse 87 03/11/2022 1:17 PM EDT Temperature - - Respiratory Rate - - Oxygen Saturation 98% 12/10/2021 1:26 PM EST Inhaled Oxygen Concentration - - Weight 93 kg (205 lb) 03/11/2022 1:17 PM EDT Height 162.6 cm (5' 4 ) 12/10/2021 1:26 PM EST Body Mass Index 35.19 12/10/2021 1:26 PM EST Plan of Treatment Health Maintenance Due Date Last Done Comments Breast Cancer Screening 1965 Pneumococcal Vaccine: 50+ Ye ars (1 of 2 - PCV) 1983 Colorectal Cancer Screening: Annual FOBT 2013 Colorectal Cancer Screening: Colonoscopy 2013 Colorectal Cancer Screening: Sigmoidoscopy 2013 Influenza Vaccine (Season Ended) 2025 07/31/20 21 Hepatitis B Vaccine Aged Out No longe r eligible based on patient's age to complete this topic Insurance A[employer]na Medicare A[employer]na Medicare Care Teams Drilling Plant Operator Relationship Specialty Start Date End Date Yady Rose NP [address] [place] [id number] PCP - General Nurse Practitioner 04/29/21
--- OUTSIDE RECORDS SUMMARY | 2025-01-23 16:11 | XMS_ITS | Clinical Summary ---
Author Organization [address] Address [address] [place] [address] Phone Care Team Providers Care Programming Manager Name Role Phone Lizbet Kennedy DO Primary Care Provider [phone] Social History Tobacco Use Types Packs/Day Years Used Date Smoking Tobacco: Never Assessed Comments Unknown Sex and Gender Information Value Date Recorded Sex Assigned at Not on file Legal Sex Female 10:04 AM EST Gender Identity Not on file Sexual Orientation Not on file Plan of Treatment Upcoming Encounters Date Type Department Care Team ([facility] Contact Info) Description 08/09/2025 3:30 PM EDT Office Visit Internal Medicine - [address] [phone] Lizbet Kennedy DO [address] [place] [id number] Health Maintenance Due Date Last Done Comments Breast Cancer Screening 1964 DTaP,Tdap,and Td Vaccines (1 - Tdap) 1983 Cervical Cancer Screening: P ap Smear 1985 Pneumococcal Vaccine: 50+ Ye ars (1 of 1 - PCV) 2014 Zoster Vaccines (1 of 2) 2014 COVID-19 Vaccine ( - 2023-2 5 season) 2024 Colorectal Cancer Screening: Colonoscopy 09/04/2024 Depression Screening 09/04/2024 HIV Screening 09/04/2024 Hepatitis C Screening 09/04/2024 Social Influencers of Health Screening 09/04/2024 Influenza Vaccine (Season Ended) 2025 RSV Immunization Adult Patie nts (1 - 1-dose 75+ series) 2039 HIB Vaccines Aged Out No longer eligi ble based on patient's age to complete this topic HPV Vaccines Aged Out No longer eligi ble based on patient's age to complete this topic Hepatitis A Vaccines Aged Out No long er eligible based on patient's age to complete this topic Hepatitis B Vaccines Aged Out No long er eligible based on patient's age to complete this topic IPV Vaccines Aged Out No longer eligi ble based on patient's age to complete this topic MMR Vaccines Aged Out No longer eligi ble based on patient's age to complete this topic Meningococcal ACWY Vaccine Aged Out N o longer eligible based on patient's age to complete this topic Meningococcal B Vaccine Aged Out No l onger eligible based on patient's age to complete this topic Pneumococcal Vaccine: Pediat rics (0 to 5 Years) and At-Risk Patients (6 to 64 Years) Aged Out No longer eligible b ased on patient's age to complete this topic RSV Immunization Patients Un sanjuana 20 months Aged Out No longer eligible b ased on patient's age to complete this topic Varicella Vaccines Aged Out No longer eligible based on patient's age to complete this topic Insurance MEDICAID - [place] Care Teams Programming Manager Relationship Specialty Start Date End Date Lizbet Kennedy DO [address] [place] [address] PCP - General Internal Medicine 12/24/24
== END 2025-01-23 14:03 | disposition home or self-care (01) ==
LOC: HO.HBS 13:36
PROVIDERS: PCP Nurse Practitioner Family; Visit Provider Physician Assistant Surgical
DX: E66.01 Morbid (severe) obesity due to excess calories (principal); Z98.84 Bariatric surgery status
CPT/HCPCS: 99214; G2211

== ENCOUNTER → 2025-01-23 13:36 | Outpatient (BNVA) | payer MEDICARE, MEDICAID, SELFPAY | PROVIDERS: PCP Nurse Practitioner Family; Visit Provider Physician Assistant Surgical | DX: E66.01 Morbid (severe) obesity due to excess calories (principal); Z98.84 Bariatric surgery status; Z68.41 Body mass index [BMI] 40.0-44.9, adult | CPT/HCPCS: 99212 ==

== ENCOUNTER 2025-03-06 13:24 | Outpatient (AMB) | payer MEDICARE, MEDICAID, SELFPAY ==
--- NOTE | 2025-03-06 12:34 | MHC.OFFVISWM ---
VS Expanded 03/06/25 12:36 Height 5 ft 4 in Intake Visit Reasons: TV F/U SWL Allergies No Known Allergies Allergy (Verified 01/23/25 13:42) Medication List - Last Reconciled 03/06/25 by ULISES Hahn albuterol sulfate 90 mcg/actuation 2 puffs inhalation Q6H PRN alprazolam 1 mg PO DAILY bumetanide 0.5 mg PO DAILY cholecalciferol (vitamin D3) 125 mcg PO DAILY metoprolol succinate ER 25 mg PO DAILY oxycodone 15 mg PO Q4-6H PRN pantoprazole 40 mg PO BID potassium chloride ER 20 mEq PO DAILY prochlorperazine maleate (Compazine) 5 mg PO Q8H PRN sertraline mg PO spironolactone mg PO sucralfate 1 g PO TID thiamine HCl (vitamin B1) 100 mg PO DAILY trazodone 100 mg PO BEDTIME Zepbound (tirzepatide (weight loss)) 2.5 mg (0.5 mL) subcut QWEEK NS HPI Comments Details: The patient is a pleasant 59 year old female with history of gastric bypass who returns to the clinic for pre-operative surgical weight loss management. Initial weight 267.8lbs. At last visit pt elected to start GLP1 agonist rather than pursue surgery at this time. Pre op work up completed as follows: SWL classes: 05/17 BH appts: 06/22/24, cleared Labs: WBC 16.3, alk phos 136, CRP 2.24, vit B 6, vit D 11.1 H. pylori: negative at endoscopy 06/26 CXR: 05/28/24; chronic appearing groundglass type opacities bilateral perihilar regions and lower lung distributions, with superimposed interstitial changes. Findings appear unchanged. EK05/28/24, NSR ABD U/S: 07/04, fatty liver/hepatomegaly CT abd: cancelled/no showed Current meal plan includes: 11am-1pm: Premier Protein powder- 2 scoops in 8oz vanilla unsweetened almond milk 2pm-4pm: [employer] protein bar Dinner at 6pm: 6 forks of protein and 6 forks of salad/vegetables 7pm-9pm: [employer] protein bar 10pm-12am: Premier Protein powder- 1 scoop in 8oz vanilla unsweetened almond milk Current exercise plan includes: Rosenda Lara 1 mile walk videos- 3-4 days/week Zepbound was approved for pt, still waiting to get prescription. Believes her weight is up due to being out of diuretics, has to get refilled by PCP today. PFSH Medical History Cough GERD (gastroesophageal reflux disease) Tachycardia Surgical History Hx of abdominoplasty History of esophagogastroduodenoscopy (EGD) Hx laparoscopic cholecystectomy Hx of discectomy Hx of gastric bypass History of bilateral knee replacement Social History Alcohol intake: never Patient Tobacco Use Status: Never used Tobacco Telehealth Telehealth Telehealth Platform: Telephone Location of provider rendering services: other Location of patient: address on file Patient Identification confirmed using: Name, : Yes Telehealth method: voice only Patient verbally consented to treatment: Yes Patient verbally consented to billing insurance company: Yes Patient informed of any privacy concerns related to visit: Yes Minutes spent on Phone/Video with Pt.: 12 Assessment & Plan Assessment & Plan (1) Morbid obesity: Code(s): E66.01 - Morbid (severe) obesity due to excess calories Category: Medical (2) Gastric bypass status for obesity: Comment: 1999- Dr. Robison, open procedure Code(s): Z98.84 - Bariatric surgery status Category: Surgical Plan Pt waiting to hear from pharmacy regarding picking up her medication. I asked her to text me when she received it so I could know when she starts. Follow above high protein meal plan. We will communicate via text regarding her progress. RTC 3mo.
--- OUTSIDE RECORDS SUMMARY | 2025-03-06 14:15 | XMS_ITS | Continuity of Care Document ---
Author Organization [facility] Address [address] [place] [address]- Care Team Providers Care Area Development Manager Name Role Phone Yady Rose NP Primary Care Physician Encounter [facility] Date(s): 01/29/25 - 02/28/[address] [address]- Encounter Type: Triage Allergies, Adverse Reactions, Alerts No Known Allergies Immunizations Given and Recorded Vaccine Date Status Refusal Reason influenza virus vaccine, inactivated 1 09/26/24 Gi vivienne influenza virus vaccine, inactivated 2 09/21/23 Gi vivienne influenza virus vaccine, inactivated 3 07/21/22 Gi vivienne influenza virus vaccine, inactivated 07/31/21 Give n influenza virus vaccine, inactivated 07/10/15 Orville rded influenza virus vaccine, inactivated 07/15/14 Orville rded zoster vaccine, inactivated 11/10/23 Recorded SARS-CoV-2(COVID-19)mRNA-LNP vac([id number]) 11/10/23 Recorded hepatitis B adult vaccine 4 11/07/23 Given SARS-CoV-2 mRNA (rgbwfyh-ceni-gjstl) vax 5 04/13/22 Given SARS-CoV-2 mRNA (jffzgzv-igas-uskzf) vax 6 01/05/22 Given tetanus-diphtheria toxoids (Td) 7 08/26/21 Given SARS-CoV-2 (COVID-19) mRNA BNT-162b2 vac 11/04/20 Recorded SARS-CoV-2 (COVID-19) mRNA BNT-162b2 vac 10/14/20 Recorded 1Result Comment: [facility] [id number] 2Result Comment: [facility]# [id number] 3Result Comment: [id number] 4Result Comment: [facility] [id number] 5Result Comment: [facility]# [id number] 6Result Comment: [facility]# [id number] 7Result Comment: [facility] [id number] Medications Acidophilus oral capsule 1 capsule, By Mouth, 2 times a day, # 60 capsule, 0 Refills, Maintenance, 10/31/23 3:33:00 PM EST, [facility]pharmacy #[id number], Partial fill upon patient request if the prescription is for a schedule II opioiddrug., 183, cm, 10/26/23 15:22:00 EST, Height, 121, kg, 10/25/23 14:24:00 EST, Dry Weight Start Date: 10/31/23 Stop Date: 11/30/23 Status: Ordered Quantity: 60.0 Unit: capsule Repeat number: 1 Albuterol (Eqv-Ventolin HFA) 90 mcg/inh inhalation aerosol 2 puffs, Inhalation, Every 6 hours, PRN NEEDED FOR WHEEZING, # 54 each, 0 Refills, Maintenance, 02/16/24 11:27:00 AM EDT, [facility] STORE [facility], 90, INHALE 2 PUFFS EVERY 6 HOURS NEEDED FOR WHEEZING, 183, cm, 10/26/23 15:22:00 EST, Height, 121, kg, 10/25/23 14:24:00 EST, Dry Weight Start Date: 02/16/24 Status: Ordered Quantity: 54.0 Unit: each Repeat number: 1 bumetanide 0.5 mg oral tablet 1, tablet, By Mouth, Daily, # 90 tablet, Refills 0, Maintenance, 09/21/24 12:25:00 PM EST, Route toPharmacy Electronically, [id number], 183, cm, 10/26/23 15:22:00 EST, Height, 121, kg, 10/25/2413:24:00 EST, Dry Weight Start Date: 09/21/24 Status: Ordered Quantity: 90.0 Unit: tablet Repeat number: 1 Colace Capsule 100 mg, 1, capsule, By Mouth, 2 times a day, hold for loose stool, Refills 0, Maintenance, 04/23/22 9:20:00 AM EDT, Partial fill upon patient request if the prescription is for a schedule II opioid drug. Start Date: 04/23/22 Status: Ordered Repeat number: 1 ipratropium nasal 21 mcg/inh spray See Instructions, USE 1 SPRAY IN EACH NOSTRIL AT BEDTIME, # 90 Unknown, 1 Refills, Maintenance, 10/24/24 2:16:00 PM EST, [id number], 90, USE 1 SPRAY IN EACH NOSTRIL AT BEDTIME, 183, cm, 09/26/24 15:53:00 EST, Height, 121, kg, 10/25/23 14:24:00 EST, Dry Weight Start Date: 10/24/24 Status: Ordered Quantity: 90.0 Unit: Unknown Repeat number: 1 Metoprolol Succinate ER 25 mg oral tablet, extended release 1, tablet, By Mouth, Daily, # 90 tablet, Refills 1, Maintenance, 02/08/25 2:52:00 PM EDT, Route to Pharmacy Electronically, [id number], 183, cm, 01/23/25 14:19:00 EDT, Height, 121, kg, 10/25/23 14:24:00 EST, Dry Weight Start Date: 02/08/25 Status: Ordered Quantity: 90.0 Unit: tablet Repeat number: 1 MiraLax Powder 1 pack/packet = 17 Gm, By Mouth, Daily, PRN Constipation, 0 Refills, Maintenance, 04/23/22 9:21:00 AM EDT, Powder, Partial fill upon patient request if the prescription is for a schedule II opioid drug. Start Date: 04/23/22 Status: Ordered Repeat number: 1 oxyCODONE 15 mg oral tablet 1 tablet = 15 mg, By Mouth, Every 4 hours, PRN as needed for pain, 0 Refills, Maintenance, 10/24/23 10:18:00 PM EST, Tablet, Partial fill upon patient request if the prescription is for a schedule II opioid drug. Start Date: 10/24/23 Status: Ordered Repeat number: 1 pantoprazole 40 mg oral delayed release tablet 1 tablet, By Mouth, 2 times a day, # 180 tablet, 0 Refills, Maintenance, 12/27/24 11:23:00 AM EDT, 183, cm, 12/18/24 15:53:00 EST, Height, 121, kg, 10/25/23 14:24:00 EST, Dry Weight Start Date: 12/27/24 Status: Ordered Quantity: 180.0 Unit: tablet Repeat number: 1 PEG-3350 with Electrolytes (Eqv-GoLYTELY) oral powder for reconstitution 240 mL, By Mouth, Every 15 minutes, split prep method 1st half 5 pm evening before , 2nd half 6 hours prior to procedure, # 1 each, 0 Refills, Maintenance, 08/20/24 10:27:00 AM EST, [facility]/pharmacy #[id number], Colonoscopy date 09/03/24 ; may substitute any PEG solution available, 240 mL By Mouth Every 15 m inutes,Instr:split prep method 1st half 5 pm evening before , 2nd half 6 hours prior to procedure, 183, cm, 10/26/23 15:22:00 EST, Height, 121, kg, 10/25/23 14:24:00 EST, Dry Weight Start Date: 08/20/24 Status: Ordered Quantity: 1.0 Unit: each Repeat number: 1 Potassium Chloride (Eqv-K-Tab) 20 mEq oral tablet, extended release 1 tablet, By Mouth, Daily, # 90 tablet, 1 Refills, Maintenance, 10/24/24 2:16:00 PM EST, [facility], 183, cm, 09/26/24 15:53:00 EST, Height, 121, kg, 10/25/23 14:24:00 EST, Dry Weight Start Date: 10/24/24 Status: Ordered Quantity: 90.0 Unit: tablet Repeat number: 1 prochlorperazine 10 mg oral tablet 1 tablet, By Mouth, Daily, PRN NEEDED FOR NAUSEA AND VOMITING, # 30 tablet, 4 Refills, Maintenance, 10/09/24 1:08:00 PM EST, [id number], 183, cm, 09/26/24 15:53:00 EST, Height, 121, kg, 10/25/23 14:24:00 EST, Dry Weight Start Date: 10/09/24 Status: Ordered Quantity: 30.0 Unit: tablet Repeat number: 5 sertraline 100 mg oral tablet 1 tablet, By Mouth, Daily, # 90 tablet, 3 Refills, Maintenance, 02/27/24 7:42:00 AM EDT, [facility], 183, cm, 10/26/23 15:22:00 EST, Height, 121, kg, 10/25/23 14:24:00 EST, Dry Weight Start Date: 02/27/24 Status: Ordered Quantity: 90.0 Unit: tablet Repeat number: 1 spironolactone 25 mg oral tablet 1, tablet, By Mouth, 2 times a day, # 180 tablet, Refills 0, Maintenance, 09/21/24 12:24:00 PM EST,Route to Pharmacy Electronically, [facility], 183, cm, 10/26/23 15:22:00 EST, Height, 121, kg,10/25/23 14:24:00 EST, Dry Weight Start Date: 09/21/24 Status: Ordered Quantity: 180.0 Unit: tablet Repeat number: 1 sucralfate 1 gm oral tablet 1, tablet, By Mouth, 3 times a day, # 270 tablet, Refills 3, Maintenance, 10/11/23 7:20:00 AM EST, Route to Pharmacy Electronically, [facility], 162.6, cm, 09/21/23 15:17:00 EST, Height, 94.8, kg,04/22/22 8:58:00 EDT, Dry Weight Start Date: 10/11/23 Status: Ordered Quantity: 270.0 Unit: tablet Repeat number: 1 traZODone 50 mg oral tablet 1, tablet, By Mouth, 2 times a day, # 180 tablet, Refills 1, Maintenance, 10/02/24 1:00:00 PM EST, Route to Pharmacy Electronically, [id number], 183, cm, 09/26/24 15:53:00 EST, Height, 121, kg, 10/25/23 14:24:00 EST, Dry Weight Start Date: 10/02/24 Status: Ordered Quantity: 180.0 Unit: tablet Repeat number: 1 Problem List Condition Confirmation Course Effective Dates Status H ealth Status Informant Anxiety Confirmed Active Violation of controlled substance agreement Confirmed Active Gastric bypass operation Confirmed Active GERD (gastroesophageal reflux disease) Confirmed Active Hiatal hernia Confirmed Active COVID-19 vaccine series completed Confirmed Active HTN (hypertension) Confirmed Active Insomnia Confirmed Active Iron deficiency anemia Confirmed Active Lumbar spondylosis Confirmed Active Neurogenic claudication Confirmed Active Obese class I Confirmed Active Osteoarthritis Confirmed Active Panic attacks Confirmed Active Chronic prescription opiate use Confirmed Active Spinal stenosis Confirmed Active Social History Social History Type Response Smoking Status Never smoker entered on: 08/18/17 Sex Sex Representation Female (finding) Patient Care team information Care Team Personnel Name: Neetu Link RN Position: [facility] SN RN Member Role: Primary Care Nurse Name: Callie Yoon RN Position: [facility] RN Member Role: Primary Care Nurse Name: Meka Mayfield RN Position: [facility] RN Member Role: Primary Care Nurse Name: Yady Rose NP Position: [facility] PCO Associate Professional Member Role: PCP Address: [address] [place] [address] [address] [place] [address]- [place] [employer]: Name: Tamela Gallegos RN Position: [facility] RN Member Role: Primary Care Nurse Name: Farrukh Fatima MD Position: [facility] Outreach Member Role: Lifetime Consulting Physician Address: [address] [facility] [address] [facility] [place] [address]- [place] Tele[employer]: Name: Hussain Mcneill RN Position: [facility] RN Member Role: Primary Care Nurse Name: Elsie Virk RN Position: [facility] RN Member Role: Primary Care Nurse Care Team Related Persons Name: DAVIDE CESAR Name: FERNADNO CADE Name: MIC MALIN Name: DAVIDE OLMOS Insurance Providers Guarantor name: MAITE OLMOS Health Plan Information #: 1 Payer: [facility] [employer] [facility] Member Number: NA Policy Number: NA Group Number: NA
== END 2025-03-06 13:24 | disposition home or self-care (01) ==
LOC: HO.HBS 13:24
PROVIDERS: PCP Nurse Practitioner Family; Visit Provider Physician Assistant Surgical
DX: E66.01 Morbid (severe) obesity due to excess calories (principal); Z98.84 Bariatric surgery status
CPT/HCPCS: 99214; G2211

== ENCOUNTER 2025-06-04 13:59 | Outpatient (AMB) | payer MEDICARE, MEDICAID, SELFPAY ==
--- OUTSIDE RECORDS SUMMARY | 2025-05-30 23:59 | XMS_ITS | Continuity of Care Document ---
Author Organization [facility] Address [address] [place] [id number]- Care Team Providers Care Belt Sander Name Role Phone Yady Rose NP Primary Care Physician Encounter [facility] Date(s): 04/30/25 - 05/30/[address] [address]- Encounter Type: Triage Allergies, Adverse Reactions, Alerts No Known Allergies Immunizations Given and Recorded Vaccine Date Status Refusal Reason pneumococcal 20-valent conjugate vaccine 1 04/09/25 Recorded influenza virus vaccine, inactivated 2 09/26/24 Gi vivienne influenza virus vaccine, inactivated 3 09/21/23 Gi vivienne influenza virus vaccine, inactivated 4 07/21/22 Gi vivienne influenza virus vaccine, inactivated 07/31/21 Give n influenza virus vaccine, inactivated 07/10/15 Orville rded influenza virus vaccine, inactivated 07/15/14 Orville rded zoster vaccine, inactivated 11/10/23 Recorded SARS-CoV-2(COVID-19)mRNA-LNP vac([id number]) 11/10/23 Recorded hepatitis B adult vaccine 5 11/07/23 Given SARS-CoV-2 mRNA (oahyics-pjwz-lwcys) vax 6 04/13/22 Given SARS-CoV-2 mRNA (ndvywbq-akvp-qpqpy) vax 7 01/05/22 Given tetanus-diphtheria toxoids (Td) 8 08/26/21 Given SARS-CoV-2 (COVID-19) mRNA BNT-162b2 vac 11/04/20 Recorded SARS-CoV-2 (COVID-19) mRNA BNT-162b2 vac 10/14/20 Recorded 1Result Comment: Given at [facility] inpatient 2Result Comment: [facility] [id number] 3Result Comment: [facility]# [id number] 4Result Comment: [id number] 5Result Comment: [facility] [id number] 6Result Comment: [facility]# [id number] 7Result Comment: [facility]# [id number] 8Result Comment: [facility] [id number] Medications Acidophilus oral capsule 1 capsule, By Mouth, 2 times a day, # 60 capsule, 0 Refills, Maintenance, 10/31/23 3:33:00 PM EST, [id number], Partial fill upon patient request if [...] 0 Refills, Maintenance, 02/16/24 11:27:00 AM EDT, [id number], 90, INHALE 2 PUFFS EVERY 6 HOURS NEEDED FOR WHEEZING, 183, cm, 10/26/23 15:22:00 EST, Height, 121, kg, 10/25/23 14:24:00 EST, Dry Weight Start Date: 02/16/24 Status: Ordered Quantity: 54.0 Unit: each Repeat number: 1 apixaban 5 mg oral tablet = 5 mg, By Mouth, 2 times a day, Further refills to come from cardiology, # 180 tablet, 3 Refills, Maintenance, 05/15/25 11:17:00 AM EDT, Tablet, [id number], Partial fill upon patient request if the prescription is for a schedule II opioid drug., 162, cm, 05/15/25 11:00:00 EDT, Height, 124.6,kg, 04/08/25 22:19:00 EDT, Dry Weight Start Date: 05/15/25 Stop Date: 05/10/26 Status: Ordered Quantity: 180.0 Unit: tablet Repeat number: 4 bumetanide 0.5 mg oral tablet 0.5 mg, 1, tablet, By Mouth, Daily, PRN, and LE edema, # 30 tablet, Refills 2, Tot. Refills 2, Maintenance, Wheezing/Shortness of Breath, 05/15/25 11:16:00 AM EDT, Route to Pharmacy Electronically, [id number], Partial fill upon patient request if the prescription is for a schedule II opioid drug., 162, cm, 05/15/25 11:00:00 EDT, Height, 124.6, kg, 04/08/25 22:19:00 EDT, Dry Weight Start Date: 05/15/25 Status: Ordered Quantity: 30.0 Unit: tablet Repeat number: 3 Colace Capsule 100 mg, 1, capsule, By Mouth, 2 times a day, hold for loose stool, Refills 0, Maintenance, 04/23/22 9:20:00 AM EDT, Partial fill upon patient request if the prescription is for a schedule II opioid drug. Start Date: 04/23/22 Status: Ordered Repeat number: 1 dapagliflozin 10 mg oral tablet = 10 mg, By Mouth, Daily, # 90 each, 3 Refills, Maintenance, 05/15/25 11:17:00 AM EDT, Tablet, [id number], Partial fill upon patient request if the prescription is for a schedule II opioid drug., 162, cm, 05/15/25 11:00:00 EDT, Height, 124.6, kg, 04/08/25 22:19:00 EDT, Dry Weight Start Date: 05/15/25 Stop Date: 05/10/26 Status: Ordered Quantity: 90.0 Unit: each Repeat number: 4 ipratropium nasal 21 mcg/inh spray See Instructions, USE 1 SPRAY IN EACH NOSTRIL AT BEDTIME, # 90 Unknown, 1 Refills, Maintenance, 10/24/24 2:16:00 PM EST, [id number], 90, USE 1 SPRAY IN EACH NOSTRIL AT BEDTIME, 183, cm, 09/26/24 15:53:00 EST, Height, 121, kg, 10/25/23 14:24:00 EST, Dry Weight Start Date: 10/24/24 Status: Ordered Quantity: 90.0 Unit: Unknown Repeat number: 1 Metoprolol Succinate ER 25 mg oral tablet, extended release 1, tablet, By Mouth, Daily, # 90 tablet, Refills 1, Maintenance, 02/08/25 2:52:00 PM EDT, Route to Pharmacy Electronically, [id number], 183, cm, 01/23/25 14:19:00 EDT, Height, 121, [...] 2 times a day, # 180 tablet, 1 Refills, Maintenance, 03/31/25 3:28:00 PM EDT, 183, cm, 01/23/25 14:19:00 EDT, Height, 121, kg, 10/25/23 14:24:00 EST, Dry Weight Start Date: 03/31/25 Status: Ordered Quantity: 180.0 Unit: tablet Repeat number: 1 PEG-3350 with Electrolytes (Eqv-GoLYTELY) oral powder for reconstitution 240 mL, By Mouth, Every 15 minutes, split prep method 1st half 5 pm evening before , 2nd half 6 hours prior to procedure, # 1 each, 0 Refills, Maintenance, 08/20/24 10:27:00 AM EST, [id number], Colonoscopy date 09/03/24 ; may substitute any PEG solution available, 240 mL By Mouth Every 15 mi nutes,Instr:split prep method 1st half 5 pm evening [...] 1 Refills, Maintenance, 10/24/24 2:16:00 PM EST, [id number], 183, cm, 09/26/24 15:53:00 EST, Height, 121, kg, 10/25/23 14:24:00 EST, Dry Weight Start Date: 10/24/24 Status: Ordered Quantity: 90.0 Unit: tablet Repeat number: 1 prochlorperazine 10 mg oral tablet 1 tablet, By Mouth, Daily, PRN NEEDED FOR NAUSEA AND VOMITING, # 30 tablet, 4 Refills, Maintenance, 10/09/24 1:08:00 PM EST, [id number], 183, cm, 09/26/24 15:53:00 EST, Height, 121, kg, 10/25/23 14:24:00 EST, Dry Weight Start Date: 10/09/24 Status: Ordered Quantity: 30.0 Unit: tablet Repeat number: 5 sertraline 100 mg oral tablet 1 tablet, By Mouth, Daily, # 90 tablet, 1 Refills, Maintenance, 04/02/25 12:24:00 PM EDT, [id number], 183, cm, 01/23/25 14:19:00 EDT, Height, 121, kg, 10/25/23 14:24:00 EST, Dry Weight Start Date: 04/02/25 Status: Ordered Quantity: 90.0 Unit: tablet Repeat number: 2 spironolactone 25 mg oral tablet 1, tablet, By Mouth, 2 times a day, # 180 tablet, Refills 0, Maintenance, 09/21/24 12:24:00 PM EST,Route to Pharmacy Electronically, [facility], 183, cm, 10/26/23 15:22:00 EST, Height, 121, kg,10/25/23 14:24:00 EST, Dry Weight Start Date: 09/21/24 Status: Ordered Quantity: 180.0 Unit: tablet Repeat number: 1 sucralfate 1 gm oral tablet 1, tablet, By Mouth, 3 times a day, # 270 tablet, Refills 1, Tot. Refills 1, Maintenance, 04/30/25 3:41:00 PM EDT, Route to Pharmacy Electronically, [id number], 162, cm, 04/10/25 11:02:00 EDT,Height, 124.6, kg, 04/08/25 22:19:00 EDT, Dry Weight Start Date: 04/30/25 Status: Ordered Quantity: 270.0 Unit: tablet Repeat number: 2 traZODone 50 mg oral tablet 1, tablet, By Mouth, 2 times a day, # 180 tablet, Refills 1, Tot. Refills 1, Maintenance, 04/02/25 12:24:00 PM EDT, Route to Pharmacy Electronically, [id number], 183, cm, 01/23/25 14:19:00 EDT, Height, 121, kg, 10/25/23 14:24:00 EST, Dry Weight Start Date: 04/02/25 Status: Ordered Quantity: 180.0 Unit: tablet Repeat number: 2 Zepbound 2.5 mg/0.5 mL subcutaneous solution = 2.5 mg, Subcutaneous Injection, Every week, rotate injection sites, # 2 mL, 0 Refills, Maintenance, 05/07/25 4:19:00 PM EDT, Solution, [id number], Partial fill upon patient request if the prescription is for a schedule II opioid drug., 162, cm, 05/07/25 15:53:00 EDT, Height, 124.6, kg, 04/08/25 22:19:00 EDT, Dry Weight Start Date: 05/07/25 Stop Date: 06/06/25 Status: Ordered Quantity: 2.0 Unit: mL Repeat number: 1 Indications: Morbid (severe) obesity due to excess calories; Prediabetes; Heart failure, unspecified; Problem List Condition Confirmation Course Effective Dates Status H ealth Status Informant Anxiety Confirmed Active Violation of controlled substance agreement Confirmed Active Gastric bypass operation Confirmed Active GERD (gastroesophageal reflux disease) Confirmed Active Hiatal hernia Confirmed Active COVID-19 vaccine series completed Confirmed Active HTN (hypertension) Confirmed Active Insomnia Confirmed Active Iron deficiency anemia Confirmed Active Lumbar spondylosis Confirmed Active Neurogenic claudication Confirmed Active Osteoarthritis Confirmed Active Panic attacks Confirmed Active Chronic prescription opiate use Confirmed Active Severe obesity Confirmed Active Spinal stenosis Confirmed Active Social History Social History Type Response Smoking Status Never smoker entered on: 08/18/17 Sex Sex Representation Female (finding) Patient Care team information Care Team Personnel Name: Araceli Wheeler RN Position: [facility] RN Member Role: Primary Care Nurse Name: Neetu Link RN Position: [facility] RN Member Role: Primary Care Nurse Name: Callie Yoon RN Position: [facility] RN Member Role: Primary Care Nurse Name: Yady Rose NP Position: [facility] PCO Associate Professional Member Role: PCP Address: [address] [place] [address] [address] [place] [address]- Telecom: Name: Tamela Gallegos RN Position: [facility] RN Member Role: Primary Care Nurse Name: Farrukh Fatima MD Position: [facility] Outreach Member Role: Lifetime Consulting Physician Address: [facility] [address] [facility] [place] [address]- [place] Telecom: Name: Hussain Mcneill RN Position: [facility] RN Member Role: Primary Care Nurse Name: Meka Drake RN Position: [facility] RN Member Role: Primary Care Nurse Name: Kianna Turner RN Position: [facility] RN Member Role: Primary Care Nurse Name: Elsie Virk RN Position: [facility] RN Member Role: Primary Care Nurse Care Team Related Persons Name: DAVIDE CESAR Name: FERNANDO CADE Name: MIC MALIN Name: DAVIDE OLMOS Insurance Providers Guarantor name: MAITE OLMOS [facility] Information #: 1 Payer: [employer] CARE Payer Identifier: EDER Member Number: [id number] Group Number: [id number] Subscriber Identifier: [id number] Relationship to Subscriber: self Coverage Type: Managed Care (Private) Coverage Verification Date: NA Telecom: NA Address: [facility] Information #: 2 Payer: [employer] Payer Identifier: EDER Member Number: [id number] Group Number: [id number] Subscriber Identifier: [id number] Relationship to Subscriber: self Coverage Type: MEDICAID Coverage Verification Date: EDER Telecom: EDER Address: NA
--- NOTE | 2025-06-04 13:41 | MHC.OFFVISWM ---
Intake Visit Reasons: TELEPHONE F/U SWL Allergies No Known Allergies Allergy (Verified 01/23/25 13:42) Medication List - Last Reconciled 06/04/25 by ULISES Hahn albuterol sulfate 90 mcg/actuation 2 puffs inhalation Q6H PRN alprazolam 1 mg PO DAILY bumetanide 0.5 mg PO DAILY cholecalciferol (vitamin D3) 125 mcg PO DAILY metoprolol succinate ER 25 mg PO DAILY oxycodone 15 mg PO Q4-6H PRN pantoprazole 40 mg PO BID potassium chloride ER 20 mEq PO DAILY prochlorperazine maleate (Compazine) 5 mg PO Q8H PRN sertraline mg PO spironolactone mg PO sucralfate 1 g PO TID thiamine HCl (vitamin B1) 100 mg PO DAILY trazodone 100 mg PO BEDTIME HPI Comments Details: The patient is a pleasant 59 year old female with history of gastric bypass who returns to the clinic for pre-operative surgical weight loss management. Initial weight 267.8lbs. At last visit pt elected to start GLP1 agonist rather than pursue surgery at this time. However insurance did not cover this. She notes she has been hospitalized since last OV- afib, CHF, prediabetes at [facility] and had cardioversion during that hospital stay. Pre op work up completed as follows: SWL classes: 05/17 BH appts: 06/22/24, cleared Labs: WBC 16.3, alk phos 136, CRP 2.24, vit B 6, vit D 11.1 H. pylori: negative at endoscopy 06/26 CXR: 05/28/24; chronic appearing groundglass type opacities bilateral perihilar regions and lower lung distributions, with superimposed interstitial changes. Findings appear unchanged. EK05/28/24, NSR ABD U/S: 07/04, fatty liver/hepatomegaly CT abd: cancelled/no showed Current meal plan includes: 11am-1pm: Premier Protein powder- 2 scoops in 8oz vanilla unsweetened almond milk 2pm-4pm: [employer] protein bar Dinner at 6pm: 6 forks of protein and 6 forks of salad/vegetables 7pm-9pm: [employer] protein bar 10pm-12am: [employer] Protein powder- 1 scoop in 8oz vanilla unsweetened almond milk Current exercise plan includes: Rosenda Lara 1 mile walk videos- 3-4 days/week PFSH Medical History Cough GERD (gastroesophageal reflux disease) Tachycardia Surgical History Hx of abdominoplasty History of esophagogastroduodenoscopy (EGD) Hx laparoscopic cholecystectomy Hx of discectomy Hx of gastric bypass History of bilateral knee replacement Social History Alcohol intake: never Patient Tobacco Use Status: Never used Tobacco Telehealth Telehealth Telehealth Platform: Telephone Location of provider rendering services: practice address Location of patient: address on file Patient Identification confirmed using: Name, : Yes Telehealth method: voice only Patient verbally consented to treatment: Yes Patient verbally consented to billing insurance company: Yes Patient informed of any privacy concerns related to visit: Yes Minutes spent on Phone/Video with Pt.: 15 Assessment & Plan Assessment & Plan (1) Gastric bypass status for obesity: Comment: 2000- Dr. Robison, open procedure Code(s): Z98.84 - Bariatric surgery status Category: Surgical (2) Morbid obesity: Code(s): E66.01 - Morbid (severe) obesity due to excess calories Category: Medical Plan Pt would like to see if Jesica is covered under her insurance since she now has cardiac issues requiring hospitalization and cardioversion. Will ask our nurse to check with her insurance. If this is denied she is interested in Zepbound self pay option. I went over pricing with her. She will text me if she decides to pursue this after she hears from our RN.
--- OUTSIDE RECORDS SUMMARY | 2025-06-04 14:55 | XMS_ITS | Clinical Summary ---
Author Organization [facility] Address [address] [place] [address] Phone Care Team Providers Care Cold Roll Packer Sheet Iron Name Role Phone Yady Rose NP Primary Care Provider [phone] Allergies Active Allergy Reactions Criticality Noted Date [...] Colorectal Cancer Screening: Sigmoidoscopy 2013 Influenza Vaccine (#1) 2025 07/31/2021 Hepatitis B Vaccine Aged Out No longe r eligible based on patient's age to complete this topic Insurance Aetna Medicare Aetna Medicare Care Teams Cold Roll Packer Sheet Iron Relationship Specialty Start Date End Date Yady Rose NP [address] [place] [id number] PCP - General Nurse Practitioner 04/29/21
--- OUTSIDE RECORDS SUMMARY | 2025-06-04 14:55 | XMS_ITS | Clinical Summary ---
Author Organization [address] Address [address] [place] [address] Phone Care Team Providers Care Business Applications Developer Name Role Phone KwabenanettieLizbet watson Primary Care Provider [phone] Social History Tobacco Use Types Packs/Day Years Used Date Smoking Tobacco: Never Assessed Comments Unknown Sex and Gender Information Value Date Recorded Sex Assigned at Not on file Legal Sex Female 10:04 AM EST Gender Identity Not on file Sexual Orientation Not on file Plan of Treatment Upcoming Encounters Date Type Department Care Team (Late st Contact Info) Description 08/12/2025 9:00 AM EST Office Visit Internal Medicine - [address] [phone] Tarah Jenkins NP [address] [place] [phone] Health Maintenance Due Date Last Done Comments Breast Cancer Screening 1965 DTaP,Tdap,and Td Vaccines (1 - Tdap) 1983 Cervical Cancer Screening: P ap Smear 1985 Pneumococcal Vaccine: 50+ Ye ars (1 of 1 - PCV) 2014 Zoster Vaccines (1 of 2) 2014 COVID-19 Vaccine (2023-2 5 season) 2024 Colorectal Cancer Screening: Colonoscopy 09/04/2024 HIV Screening 09/04/2024 Hepatitis C Screening 09/04/2024 Medicare Annual Wellness Visit 09/04/2024 Social Influencers of Health Screening 09/04/2024 Depression Screening 10/10/2024 Influenza Vaccine (#1) 2025 RSV Immunization Adult Patie nts (1 [...] complete this topic Insurance MEDICAID - [place] [facility] MEDICARE ADVANTAGE on file Care Teams Business Applications Developer Relationship Specialty Start Date End Date Lizbet Kennedy DO [address] [place] [phone] (work) PCP - General Internal Medicine 12/24/24
== END 2025-06-04 13:59 | disposition home or self-care (01) ==
LOC: HO.HBS 13:59
PROVIDERS: PCP Nurse Practitioner Family; Visit Provider Physician Assistant Surgical
DX: E66.01 Morbid (severe) obesity due to excess calories (principal); Z98.84 Bariatric surgery status
CPT/HCPCS: 99213; G2211